=== PATIENT | male | born 1945 | race Caucasian/White ===

== ENCOUNTER 2020-02-28 18:41 | Emergency (ER) | payer OTHER, SELFPAY ==
--- NOTE | 2020-02-28 | CTR_ITS ---
PROCEDURE INFORMATION: Exam: CT Abdomen And Pelvis With Contrast Exam date and time: 02/28/2020 11:09 PM Age: 74 years old Clinical indication: Abdominal pain; Generalized; Additional info: Abd pain, low BP TECHNIQUE: Imaging protocol: Computed tomography of the abdomen and pelvis with intravenous contrast. Radiation optimization: All CT scans at this facility use at least one of these dose optimization techniques: automated exposure control; mA and/or kV adjustment per patient size (includes targeted exams where dose is matched to clinical indication); or iterative reconstruction. Contrast material: VISI; Contrast volume: 95 ml; Contrast route: INTRAVENOUS (IV); COMPARISON: CT abdomen pelvis wo con [id number] 05/02/2018 6:02 PM RADIATION DOSE METRICS: Total DLP (mGy-cm): 2139.89 FINDINGS: Lungs: Punctate right lower lobe calcified granuloma. Liver: Fatty infiltration of the liver. Gallbladder and bile ducts: No calcified stones. No pericholecystic inflammatory changes. No ductal dilation. Pancreas: Normal. No ductal dilation. Spleen: Calcified splenic granulomas. 2 cm splenic cyst. Bilateral simple renal cysts measuring up to 16 mm-no follow-up recommended. Adrenals: Normal. No mass. Kidneys and ureters: See Spleen finding. 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 Appendix: Normal appendix. Intraperitoneal space: No free air. No significant fluid collection. Vasculature: No abdominal aortic aneurysm. Lymph nodes: No enlarged lymph nodes. Bladder: Unremarkable as visualized. Reproductive: Enlarged prostate gland. Bones/joints: Unremarkable. No acute fracture. Soft tissues: Unremarkable. CT/CT abdomen pelvis w con* [id number] IMPRESSION: 1. No grass mass is seen at the site of the known stricture at the GE junction. 2. Fatty infiltration of the liver. COMMENTS: Consistent with the [employer]'s Incidental Findings Committee white paper (J Am Rm Radiol 2018): Any incidental renal lesion less than 1.0 cm or classified as too small to characterize, or any incidental cystic renal lesion characterized as simple-appearing, is likely benign. No follow-up imaging is recommended for these lesions per consensus recommendations based on imaging criteria. Radiation Dose CTDIVOL = (mGy): DLP = 2139.89 (mGy-cm)
[2020-02-28 19:45] VITALS: BP 104/67; PULSE 84; RESP 18; TEMP 36.8; O2SAT 95; BMI 35.5
--- NOTE | 2020-02-28 19:51 | PC.NURSE ---
History of stretching esophagus x 5 times in the past. Last one May 2019
[2020-02-28 20:50] LABS: Basophils # 0.1 10^3/uL (0.0-0.1); Basophils % 0.4 %; Eosinophils # 0.1 10^3/uL (0.0-0.8); Eosinophils % 0.9 %; Hematocrit 46.1 % (42.0-52.0); Hemoglobin 14.9 g/dL (11.7-16.6); Lymphocytes # 3.7 10^3/uL (0.8-4.8); Lymphocytes % 26.1 %; Mean Corpuscular HGB Conc 32.3 g/dL (30.0-36.0); Mean Corpuscular Hemoglobin 32.9 pg (28.0-34.0); Mean Corpuscular Volume 101.8 fL (80-94); Mean Platelet Volume 10.3 fL (7.4-10.4); Monocytes # 1.1 10^3/uL (0.2-0.9); Neutrophils # 8.8 10^3/uL (1.8-7.7); Neutrophils % 62.9 %; Nucleated Red Blood Cells % 0 %; Platelet Count 321 10^3/cmm (130-400); Red Blood Count 4.53 10^6/uL (4.1-5.3); Red Cell Distribution Width 15.5 % (12.1-15.1)
[2020-02-28 21:08] LABS: Lactate (Lactic Acid level) 1.9 mmol/L (0.5-2.2)
[2020-02-28 21:09] LABS: Alanine Aminotransferase 29 U/L (0-41); Albumin Level 4.4 g/dL (3.5-5.2); Alkaline Phosphatase 73 IU/L (40-130); Anion Gap 17.3 (5-19); Aspartate Amino Transferase 25 U/L (0-40); Blood Urea Nitrogen 22 mg/dL (8-23); Calcium 10.1 mg/dL (8.5-10.5); Carbon Dioxide 27 mmol/L (22-29); Chloride 94 mmol/L (98-107); Globulin 3.4 g/dL (1.3-4.6); Glucose 91 mg/dL (65-115); Lipase 19 U/L (13-60); Osmolality Calculated 274 mOsm/kg (285-295); Potassium 4.3 mmol/L (3.5-5.1); Sodium 134 mmol/L (136-145); Total Bilirubin 0.5 mg/dL (0.15-1.2); Total Protein 7.8 g/dL (6.6-8.7)
[2020-02-28 21:29] VITALS: BP 105/67; PULSE 75; RESP 20; O2SAT 94
--- NOTE | 2020-02-28 22:02 | ECG_ITS ---
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 Measurements Intervals [place] Rate: 75 P: 83 NM: 180 QRS: 28 QRSD: 89 T: 51 QT: 381 QTc: 426 Interpretive Statements SINUS RHYTHM Compared to ECG 05/02/2018 18:40:38 No significant changes Electronically Signed On 02-29-2020 13:51:04 CDT by Sanchez Jasso M.D. [email or web address]
--- NOTE | 2020-02-28 22:09 | XRR_ITS ---
PROCEDURE INFORMATION: Exam: XR Abdomen, 1 View Exam date and time: 02/28/2020 10:46 PM Age: 74 years old Clinical indication: Pain; Chest pressure; Patient HX: Stricture in esoph. Causing vomitting; Additional info: Cp TECHNIQUE: Imaging protocol: XR of the abdomen. Views: Frontal supine view of the abdomen. 1 View. COMPARISON: CR Chest 2 views* [id number] 05/02/2018 6:30 PM FINDINGS: Three images were taken over 4 minutes. Gastrointestinal tract: Administered oral contrast demonstrates a stricture in the vicinity of the GE junction. Some of the contrast passes through the stricture and is some of it remains within the distended esophagus. Bones/joints: No acute abnormality. XR/XR chest 2V* [id number] IMPRESSION: Administered oral contrast demonstrates a stricture in the vicinity of the GE junction. Some of the contrast passes through the stricture and is some of it remains within the distended esophagus.
[2020-02-28 22:23] VITALS: BP 108/56; PULSE 88; RESP 18; O2SAT 97
[2020-02-28] MEDS: sodium chloride 0.9% 1,000 ML 999 ML IV (22:25)
[2020-02-28 22:41] LABS: Troponin(5th) Baseline 44 ng/L (0-15)
[2020-02-28] MEDS: diatrizoate meglumine 30 mL Sol PO (22:44)
--- NOTE | 2020-02-28 23:06 | PC.NURSE ---
EKG done at 2228 and shown to ER doctor
[2020-02-28] MEDS: iodixanol 320 mg/mL 100mL Btl IV (23:12)
[2020-02-28 23:27] VITALS: BP 137/81; PULSE 81; RESP 18; O2SAT 95
[2020-02-29 00:10] VITALS: BP 123/61; PULSE 77; RESP 17; O2SAT 94
--- NOTE | 2020-02-29 00:58 | W.ED.ABDPA2 ---
HPI - Abdominal Pain General: Chief Complaint: Abdominal Pain Stated Complaint: throat/chest problems Time Seen by Provider: 02/28/20 21:36 History of Present Illness: HPI narrative: 74-year-old male with a history of 4-5 distal esophageal dilatations in the past. He presents after eating something this evening, and then getting some chest discomfort in the lower chest. At home, he became diaphoretic and pale and complained of chest discomfort. This worried his family. He had another episode in our waiting room. He seems to be tolerating saliva at least part of the time, but some things are coming back up as well. MD elicited complaint: abdominal pain Onset (ago): hour(s) Pain Consistency: constant Location: Chest and Epigastric Severity: moderate Quality: cramping and stabbing Radiation: back Migration to: no migration Relieving factors: nothing Associated Symptoms: Reports bloating, nausea and vomiting; Denies coffee ground emesis, diarrhea, fever(s), hematuria and hematemesis Review of Systems Const: Denies: fever(s) Eyes: Denies: change in vision or blurry vision ENMT: Denies: swelling of lips/tongue, change in hearing, post nasal drip or sinus pain Card: Reports: chest pain and palpitations; Denies: irregular heart rhythm or orthopnea Resp: Reports: dyspnea; Denies: productive cough, non-productive cough or wheezing GI: Reports: nausea, vomiting and bloating; Denies: hematemesis, coffee ground emesis or diarrhea : Denies: difficulty urinating or hematuria Musc: Reports: back pain; Denies: neck pain, joint redness or joint warmth Skin/Breast: Denies: rash, pruritus or erythema Neuro: Denies: headache(s), dizziness or vertigo Psych: Denies: anxiety Physical Exam Const: GENERAL APPEARANCE: well developed ORIENTATION/CONSCIOUSNESS: Yes oriented to person, Yes oriented to place and Yes oriented to time HENMT: COMMON NORMALS: normocephalic, external ears normal and Normal external nose present HEAD & SCALP: normocephalic; no scalp tenderness FACE & SINUS: normal facial exam NOSE: Normal external nose present and No nasal discharge present EXTERNAL EAR: Yes external ears normal MOUTH: tongue normal Eye: COMMON NORMALS: Equal, round and reactive pupils present, EOMs intact bilaterally and conjunctivae normal EYELID: eyelids normal CONJUNCTIVA: Yes conjunctivae normal PUPIL: Yes Equal, round and reactive pupils present Neck/C-Spine: GENERAL: No tracheal deviation Chest: COMMONS NORMALS: normal inspection of the chest CHEST: No tenderness Resp: COMMON NORMALS: clear to auscultation bilaterally EFFORT & INSPECTION: No tachypneic, No respiratory distress, No retractions, No uses accessory muscles and No tracheal deviation AUSCULTATION: clear to auscultation bilaterally, no rhonchi, no wheezes and lung sounds not diminished Cardio: COMMON NORMALS: regular rate and regular rhythm RATE: regular rate RHYTHM: regular rhythm HEART SOUNDS: no murmurs PERIPHERAL PULSES: radial pulses present GI: INSPECTION: Yes abdominal distension AUSCULTATION: No Hyperactive bowel sounds present and No Hypoactive bowel sounds present PALPATION: Yes Guarding due to palpation present (GI) and No Rigid due to palpation PERCUSSION: no dullness to percussion and no tympanic to percussion Neuro: SENSORIUM/ORIENTATION: Yes oriented to person, Yes oriented to place and Yes oriented to time Psych: COMMON NORMALS: mental status grossly normal Skin: COMMON NORMALS: no rashes or lesions noted GENERAL SKIN EXAM: no rashes or lesions noted Course Vital Signs: Vital signs: Vital Signs Temperature 98.3 F 02/28/20 19:45 Pulse Rate 77 02/29/20 00:10 Respiratory Rate 17 02/29/20 00:10 Blood Pressure 123/61 02/29/20 00:10 Pulse Oximetry 94 02/29/20 00:10 MDM - Abdominal Pain MDM Narrative: Medical decision making narrative: 74-year-old male presents with epigastric/chest pain, and inability to tolerate oral intake. He has a history of known stricture it has been dilated several times. Modified swallow study at the bedside reveals a significant stricture of the GE junction. He has had several episodes of diaphoresis, shortness of breath, and hypotension, likely related to vagal reaction. I spoke with our surgeon here, who does not perform esophageal dilatation procedures. I also spoke with gastroenterology at [facility]. Dr. Sierra has agreed to see the patient there. I spoke with my counterpart, Dr. Aranda in the ER, he accepts the patient for transfer. Lab Data: Labs: Lab Results 02/28/20 02/28/20 02/28/20 Range/Units 20:40 20:40 20:40 WBC 14.0 H (4.0-10.0) 10^3/ uL RBC 4.53 (4.1-5.3) 10^6/u L Hgb 14.9 (11.7-16.6) g/dL Hct 46.1 (42.0-52.0) % MCV 101.8 H (80-94) fL MCH 32.9 (28.0-34.0) pg MCHC 32.3 (30.0-36.0) g/dL RDW 15.5 H (12.1-15.1) % Plt Count 321 (130-400) 10^3/c mm MPV 10.3 (7.4-10.4) fL Neut % (Auto) 62.9 % Lymph % (Auto) 26.1 % [place] % (Auto) 8.0 % Eos % (Auto) 0.9 % Baso % (Auto) 0.4 % Neut # (Auto) 8.8 H (1.8-7.7) 10^3/u L Lymph # (Auto) 3.7 (0.8-4.8) 10^3/u L [place] # (Auto) 1.1 H (0.2-0.9) 10^3/u L Eos # (Auto) 0.1 (0.0-0.8) 10^3/u L Baso # (Auto) 0.1 (0.0-0.1) 10^3/u L Nucleated RBC % (a uto) 0 % Nucleated RBCs # 0.0 /100WBC Sodium 134 L (136-145) mmol/L Potassium 4.3 (3.5-5.1) mmol/L Chloride 94 L (98-107) mmol/L Carbon Dioxide 27 (22-29) mmol/L Anion Gap 17.3 (5-19) BUN 22 (8-23) mg/dL Creatinine 1.3 H (0.7-1.2) mg/dL Glucose 91 (65-115) mg/dL Calculated Osmolal ity 274 L (285-295) mOsm/k g Lactate 1.9 (0.5-2.2) mmol/L Calcium 10.1 (8.5-10.5) mg/dL Total Bilirubin 0.5 (0.15-1.2) mg/dL AST 25 (0-40) U/L ALT 29 (0-41) U/L Alkaline Phosphata se 73 (40-130) IU/L Troponin T Baselin e (0-15) ng/L Troponin T 120 Min [place] (0-15) ng/L Delta Troponin T (0-10) ABS# Total Protein 7.8 (6.6-8.7) g/dL Albumin 4.4 (3.5-5.2) g/dL Globulin 3.4 (1.3-4.6) g/dL Lipase 19 (13-60) U/L 02/28/20 02/28/20 Range/Units 20:40 22:55 WBC (4.0-10.0) 10^3/ uL RBC (4.1-5.3) 10^6/u L Hgb (11.7-16.6) g/dL Hct (42.0-52.0) % MCV (80-94) fL MCH (28.0-34.0) pg MCHC (30.0-36.0) g/dL RDW (12.1-15.1) % Plt Count (130-400) 10^3/c mm MPV (7.4-10.4) fL Neut % (Auto) % Lymph % (Auto) % [place] % (Auto) % Eos % (Auto) % Baso % (Auto) % Neut # (Auto) (1.8-7.7) 10^3/u L Lymph # (Auto) (0.8-4.8) 10^3/u L [place] # (Auto) (0.2-0.9) 10^3/u L Eos # (Auto) (0.0-0.8) 10^3/u L Baso # (Auto) (0.0-0.1) 10^3/u L Nucleated RBC % (a uto) % Nucleated RBCs # /100WBC Sodium (136-145) mmol/L Potassium (3.5-5.1) mmol/L Chloride (98-107) mmol/L Carbon Dioxide (22-29) mmol/L Anion Gap (5-19) BUN (8-23) mg/dL Creatinine (0.7-1.2) mg/dL Glucose (65-115) mg/dL Calculated Osmolal ity (285-295) mOsm/k g Lactate (0.5-2.2) mmol/L Calcium (8.5-10.5) mg/dL Total Bilirubin (0.15-1.2) mg/dL AST (0-40) U/L ALT (0-41) U/L Alkaline Phosphata se (40-130) IU/L Troponin T Baselin e 44 H (0-15) ng/L Troponin T 120 Min [place] 39.00 H (0-15) ng/L Delta Troponin T -5.00 L (0-10) ABS# Total Protein (6.6-8.7) g/dL Albumin (3.5-5.2) g/dL Globulin (1.3-4.6) g/dL Lipase (13-60) U/L Discharge Plan Discharge Patient Disposition: Xfer Other Clinical Impression: GERD with stricture Condition: Stable Referrals: Geovany Caputo [Primary Care Provider] - Coding Level of Care Code ED Video Journalist for [facility] Exam Comprehensive
[2020-02-29 01:26] VITALS: BP 107/63; PULSE 79; RESP 17; O2SAT 97
[2020-02-29 01:57] VITALS: BP 107/63; PULSE 87; RESP 17; O2SAT 98
[2020-02-29 05:17] LABS: C Reactive Protein 7.6 mg/L (0.0-4.9)
== END 2020-02-29 01:59 | disposition other institution (70) ==
PROVIDERS: Emergency Provider Emergency Medicine; Family Provider Internal Medicine; PCP Internal Medicine
DX: K21.9 Gastro-esophageal reflux disease without esophagitis (principal)
CPT/HCPCS: 12345; 36415; 71046; 74177; 80053; 83605; 83690; 84484; 85025; 86140; 93005; 96360; 99283; 99284; J7030; Q9963; Q9967

== ENCOUNTER → 2020-05-17 12:52 | Outpatient (BNVA) | payer OTHER, SELFPAY | PROVIDERS: Family Provider Internal Medicine; PCP Internal Medicine | DX: Z20.828 Contact with and (suspected) exposure to other viral communicable diseases (principal) | CPT/HCPCS: 87635 ==

== ENCOUNTER → 2020-06-17 10:21 | Outpatient (BNVA) | payer OTHER, SELFPAY | PROVIDERS: Family Provider Internal Medicine; PCP Internal Medicine; Referring Provider Family Medicine; Visit Provider Specialist | DX: M17.0 Bilateral primary osteoarthritis of knee (principal) | CPT/HCPCS: 73560; 73565 ==

== ENCOUNTER 2020-11-09 10:52 | Emergency (ER) | payer OTHER, SELFPAY ==
[2020-11-09 11:04] VITALS: BP 169/95; PULSE 80; RESP 16; TEMP 36.2; O2SAT 95; BMI 37.1
--- NOTE | 2020-11-09 11:17 | ED_ITS ---
HPI - Skin/Abscess/Foreign Bdy General: Chief complaint: Skin/Abscess/Foreign Body Stated complaint: FINGER INFECTION Time Seen by Provider: 11/09/20 11:06 History of Present Illness: HPI narrative: The patient is a 75-year-old male with past medical history diabetes who comes to the ER complaining of a left pinky infection. He has a paronychia to the nail. 3 weeks ago he smashed it but it seems like overnight the pain swelling and redness occurred. He is worried about it because he is a diabetic MD complaint: abscess/boil Onset (ago): day(s) (1) Location: L hand Severity: mild Quality: sharp Pain Consistency: constant Relieving factors: none Exacerbating factors: palpation Context: none Associated symptoms: Reports no associated symptoms Review of Systems General: Reports: 10 or more systems reviewed and unremarkable except in HPI and below Const: Denies: fatigue Eyes: Denies: change in vision, blurry vision or eye redness ENMT: Denies: throat pain, swelling of lips/tongue, ear or mastoid pain or nasal congestion Card: Denies: chest pain, palpitations, irregular heart rhythm, edema, dyspnea on exertion or orthopnea Resp: Denies: dyspnea, productive cough or non-productive cough GI: Denies: abdominal pain, diarrhea or GI cramping : Denies: flank pain, urinary frequency or urinary urgency Musc: Denies: neck pain, back pain, extremity pain, joint pain, joint redness, limited range of motion or muscle weakness Skin/Breast: Denies: rash, pruritus, erythema, skin pain or skin tenderness Neuro: Denies: headache(s), numbness in extremities, weakness in extremities, sensory changes, difficulty walking, dizziness, confusion or Slurred speech present Psych: Denies: anxiety or depression Endo: Denies: polyuria All/Imm: Denies: urticaria, throat swelling or tongue swelling PFSH ED PFSH: Social History Smoking and tobacco status: never smoked Alcohol intake: never Physical Exam Const: COMMON NORMALS: no acute distress, average body habitus, patient oriented x3, no limitations, healthy appearing, alert and well nourished GENERAL APPEARANCE: cooperative, comfortable, well kempt and well developed ORIENTATION/CONSCIOUSNESS: Yes awake, Yes oriented to person, Yes oriented to place and Yes oriented to time HENMT: COMMON NORMALS: normocephalic, external ears normal and Normal external nose present HEAD & SCALP: normal to inspection and normocephalic NOSE: Normal external nose present EXTERNAL EAR: Yes external ears normal MOUTH: Normal oral and palatal mucosa present THROAT: posterior oropharynx normal Eye: COMMON NORMALS: Equal, round and reactive pupils present and EOMs intact bilaterally GENERAL EYE: appearance normal, both eyes and all related structures PUPIL: Yes Equal, round and reactive pupils present Neck/C-Spine: COMMON NORMALS: full ROM, no lymphadenopathy, no meningeal signs and no JVD GENERAL: Yes normal visual inspection Lymph: LYMPHATIC: no lymphadenopathy noted Chest: COMMONS NORMALS: normal inspection of the chest and normal palpation of entire chest wall Resp: COMMON NORMALS: normal respiratory effort, No retractions, No use of accessory muscles, clear to auscultation bilaterally and percussion normal EFFORT & INSPECTION: Yes able to speak in complete sentences AUSCULTATION: clear to auscultation bilaterally PERCUSSION: percussion normal Cardio: COMMON NORMALS: no JVD, regular rate, regular rhythm, S1 normal heart sound present, S2 normal heart sound present and Peripheral pulses 2+ throughout RATE: regular rate RHYTHM: regular rhythm HEART SOUNDS: S1 normal heart sound present and S2 normal heart sound present PERIPHERAL PULSES: Peripheral pulses 2+ throughout GI: COMMON NORMALS: Normal to inspection, nondistended, normoactive bowel sounds present, Soft to palpation, non-tender and no masses INSPECTION: Yes normal to inspection PALPATION: Yes Soft to palpation : COMMON NORMALS: Yes no CVA tenderness BLADDER/KIDNEY EXAM: Yes no CVA tenderness Back/Pelvis: COMMON NORMALS: no CVA tenderness, thoracic and lumbar spine normal to inspection, no thoracic nor lumbar tenderness and thoraco-lumbar ROM normal Extremity: COMMON NORMALS: normal to inspection, full ROM, capillary refill normal, no joint enlargement and no pedal edema GENERAL: Yes normal exam except as noted Neuro: COMMON NORMALS: patient oriented x3, CN's II-XII intact bilaterally, moves all extremities, no focal motor deficits, no sensory deficits noted and gait normal SENSORIUM/ORIENTATION: Yes alert, Yes oriented to person, Yes oriented to place and Yes oriented to time MENINGEAL SIGNS: Yes no meningeal signs Psych: COMMON NORMALS: mental status grossly normal, Normal thought process present, cooperative, normal affect and speech normal APPEARANCE: Yes well kempt ATTITUDE: Yes calm SPEECH: Yes normal speech THOUGHT PROCESS: Normal thought process present Skin: COMMON NORMALS: no rashes or lesions noted NARRATIVE SKIN EXAM: Left fifth digit paronychia with mild surrounding cellulitis. GENERAL SKIN EXAM: no rashes or lesions noted Procedures Abscess I/D Site: hand (Left fifth digit paronychia) Side (if applicable): left Technique: incised with #11 blade Amount of fluid expressed (mL): 0.25 Irrigation: No Packing used?: none Complications: other (none) Course Vital Signs: Vital signs: Vital Signs Temperature 97.1 F L 11/09/20 11:04 Pulse Rate 80 11/09/20 11:04 Respiratory Rate 16 11/09/20 11:04 Blood Pressure 169/95 11/09/20 11:04 Pulse Oximetry 95 11/09/20 11:04 MDM - Skin/Abscess/Foreign Bdy MDM Narrative: Medical decision making narrative: Used Betadine and drained a small paronychia on left fifth digit. Patient tolerated well. Given Keflex and stable for discharge. Recommended follow-up with primary care physician in 3 to 5 days to monitor improvement of his condition. ER with worsening symptoms Discharge Plan Discharge Patient Disposition: Home Clinical Impression: Paronychia Condition: Stable Prescriptions: New cephalexin 500 mg capsule 500 mg PO BID 10 Days Qty: 20 RF: 0 No Action alogliptin 25 mg tablet 25 mg PO DAILY RF: 0 lisinopril-hydrochlorothiazide 20-25 mg tablet 1 tab PO DAILY RF: 0 atorvastatin 80 mg tablet 80 mg PO DAILY RF: 0 omeprazole 20 mg capsule,delayed release(DR/EC) 20 mg PO BID RF: 0 metformin 1,000 mg tablet 1,000 mg PO BID RF: 0 gabapentin 800 mg tablet 800 mg PO BID RF: 0 allopurinol 300 mg tablet 150 mg PO DAILY RF: 0 glipizide 10 mg tablet 10 mg PO BID RF: 0 Discharge Orders: Discharge ED (Routine); Ordered 11/09/20 Ordered By: Huang Saavedra Referrals: Geovany Caputo [Primary Care Provider] - Discharge Diet: Advance as tolerated Discharge Activity: Resume usual activity Patient Instructions: Opioid Safety Activity Restrictions/Additional Instructions: You have a small infection of your left finger called a paronychia. It has been drained. Please take the antibiotics as directed for 10 days and follow-up with your primary care physician in 3 to 5 days to monitor improvement of the wound. Return to the ER at anytime with worsening symptoms. Coding Level of Care Code ED [facility] Exam Comprehensive
[2020-11-09] MEDS: cephALEXin 500 mg Capsule PO (11:27)
== END 2020-11-09 11:35 | disposition home or self-care (01) ==
PROVIDERS: Emergency Provider Family Medicine; PCP Internal Medicine
DX: L03.012 Cellulitis of left finger (principal)
CPT/HCPCS: 10060; 99283

== ENCOUNTER 2021-11-30 12:52 | Emergency (ER) | payer OTHER, SELFPAY ==
[2021-11-30 12:58] VITALS: BP 128/72; PULSE 85; RESP 16; TEMP 36.6; O2SAT 94; BMI 34.7
[2021-11-30 14:17] VITALS: BP 116/76; PULSE 77; RESP 21; O2SAT 93
--- NOTE | 2021-11-30 14:19 | W.ED.GENADLT ---
HPI - General Adult General: Chief complaint: General Medical Stated complaint: throat pain / loss of appetite Time Seen by Provider: 11/30/21 14:19 Source: patient Mode of arrival: ambulatory Limitations: no limitations History of Present Illness: 76-year-old male presents emergency room stating he has difficulty swallowing food. Things feels like things get stuck in his throat. He began 3 to 4 days ago and is persisted he is able to swallow saliva he is able to swallow his pills this morning and has been able to swallow liquids but any solids feel like they get hung up he has required EGD with dilation in the past from Dr. Johnson. He has not had difficulty with airway or managing saliva at this time. Onset (ago): day(s) (4) Location: abdomen Radiation: non-radiation Severity: mild Quality: aching Pain Consistency: intermittent Relieving factors: none Exacerbating factors: eating Associated symptoms: Deny chest pain, confusion, cough, diaphoresis, decreased appetite, dyspnea, fevers/chills, headache(s), malaise, nausea, rash, palpitations, seizures, short of breath, syncope, vomiting or weakness Treatments prior to arrival: none Review of Systems Const: Denies: malaise or diaphoresis ENMT: Denies: throat pain, ear or mastoid pain, nasal discharge or nasal congestion Card: Denies: chest pain, palpitations or syncope Resp: Denies: dyspnea GI: Denies: nausea or vomiting : Denies: flank pain, dysuria, urinary frequency or urinary urgency Skin/Breast: Denies: rash Neuro: Denies: headache(s) or confusion PFS ED PFSH: Social History Smoking and tobacco status: never smoked Alcohol intake: never Physical Exam Const: COMMON NORMALS: no acute distress GENERAL APPEARANCE: cooperative and comfortable ORIENTATION/CONSCIOUSNESS: Yes awake, Yes oriented to person, Yes oriented to place and Yes oriented to time HENMT: COMMON NORMALS: normocephalic, atraumatic and hearing grossly normal bilaterally HEAD & SCALP: normocephalic and atraumatic Neck/C-Spine: COMMON NORMALS: no JVD Resp: COMMON NORMALS: normal respiratory effort, No retractions, No use of accessory muscles and clear to auscultation bilaterally AUSCULTATION: clear to auscultation bilaterally Cardio: COMMON NORMALS: no JVD, regular rate, regular rhythm and No murmurs present (Cardio) RATE: regular rate RHYTHM: regular rhythm GI: COMMON NORMALS: Soft to palpation and No hepatosplenomegaly present AUSCULTATION: Yes normoactive bowel sounds PALPATION: Yes Soft to palpation, No Tenderness to palpation present (GI), No Guarding due to palpation present (GI) and Yes No hepatosplenomegaly present Extremity: COMMON NORMALS: normal to inspection, capillary refill normal, no clubbing, cyanosis or edema, no calf tenderness and no pedal edema Neuro: SENSORIUM/ORIENTATION: Yes oriented to person, Yes oriented to place and Yes oriented to time Skin: COMMON NORMALS: no rashes or lesions noted GENERAL SKIN EXAM: no rashes or lesions noted Course Vital Signs: Vital signs: Vital Signs Temperature 97.8 F 11/30/21 12:58 Pulse Rate 81 11/30/21 14:50 Respiratory Rate 22 H 11/30/21 14:50 Blood Pressure 147/90 11/30/21 14:50 Pulse Oximetry 93 11/30/21 14:[address] [facility] - General Adult Medical Decision Making Patient certainly does sound like he has an esophageal stricture but he is also not obstructed at this time is able to swallow liquids and pills. Discussed Dr. Johnson since that he is who has seen him previously and patient request Dr. Alex Siddiquiu patient in outpatient clinic and schedule EGD with possible dilation at a later date. In the meantime asked patient to go with a liquid diet only he should not take his glipizide or Metformin until after the procedure is completed return if he is unable to swallow liquids Medical Records I reviewed the patient's medical records. Lab Data I reviewed the patient's lab results. Discharge Plan Discharge Patient Disposition: Home Clinical Impression: Esophageal stricture Condition: Stable Prescriptions: No Action alogliptin 25 mg tablet 25 mg PO DAILY 0RF lisinopril-hydrochlorothiazide 20-25 mg tablet 1 tab PO DAILY 0RF atorvastatin 80 mg tablet 40 mg PO DAILY 0RF omeprazole 20 mg capsule,delayed release(DR/EC) 20 mg PO BID 0RF metformin 1,000 mg tablet 1,000 mg PO BID 0RF gabapentin 800 mg tablet 800 mg PO BID 0RF allopurinol 300 mg tablet 300 mg PO DAILY 0RF glipizide 10 mg tablet 10 mg PO BID 0RF Aspir-81 81 mg Tablet,Delayed Release (Dr/Ec) 81 mg PO DAILY 0RF Vitamin D3 1 cap PO QAM 0RF Discharge Orders: Discharge ED (Routine); Ordered 11/30/21 Ordered By: Jefe Warner Referrals: Domenico Johnson MD [Physician] - (esophogeal stricture worsenign) Discharge Diet: As Directed Discharge Activity: Resume usual activity Patient Instructions: Opioid Safety Coding Level of Care Code ED [facility]
[2021-11-30 14:50] VITALS: BP 147/90; PULSE 81; RESP 22; O2SAT 93
== END 2021-11-30 14:51 | disposition home or self-care (01) ==
PROVIDERS: Emergency Provider Family Medicine; PCP Internal Medicine
DX: K22.2 Esophageal obstruction (principal)
CPT/HCPCS: 99281

== ENCOUNTER 2021-12-02 09:27 | Day surgery (SDC) | payer OTHER, SELFPAY ==
[2021-12-01 08:18] VITALS: BMI 34.4
--- NOTE | 2021-12-02 10:00 | P.HP_ITS ---
Same Day Surgery H&P Indication for Procedure/HPI DATE OF PROCEDURE: December 02, 2021 CHIEF COMPLAINT/INDICATIONFOR SURGICAL PROCEDURE: Achalasia/EGD with dilation, Botox PREOP DIAGNOSIS: Achalasia PLANNED PROCEDURE: Operation Date: 12/02/21 11:00 Proposed Procedures p EGD Dilation W/ Balloon R13.10(Not Applicable) - Domenico Johnson MD s EGD With Botox Injection(Not Applicable) - Domenico Johnson MD Medications/Allergies* Home Medications Medication Instructions Recorded Confirmed Type allopurinol 300 mg tablet 300 mg PO DAILY 05/17/20 12/02/21 History alogliptin 25 mg tablet 25 mg PO DAILY 05/17/20 12/02/21 History atorvastatin 80 mg tablet 40 mg PO DAILY 05/17/20 12/02/21 History gabapentin 800 mg tablet 800 mg PO BID 05/17/20 12/02/21 History glipizide 10 mg tablet 10 mg PO BID 05/17/20 12/02/21 History lisinopril 20 1 tab PO DAILY 05/17/20 12/02/21 History mg-hydrochlorothiazide 25 mg tablet metformin 1,000 mg tablet 1,000 mg PO BID 05/17/20 12/02/21 History omeprazole 20 mg capsule,delayed 20 mg PO BID 05/17/20 12/02/21 History release Vitamin D3 1 cap PO QAM 11/30/21 12/02/21 History aspirin 81 mg tablet,delayed 81 mg PO DAILY 11/30/21 12/02/21 History release Allergies/Adverse Reactions Allergy/AdvReac Type Severity Reaction Status Date / Time erythromycin base Allergy Intermediate ALGY-Rash Verified 12/02/21 09:58 azithromycin Allergy Unknown Verified 12/02/21 09:58 bacitracin Allergy NAUSEA Verified 12/02/21 09:58 [From Triple Antibiotic] neomycin Allergy NAUSEA Verified 12/02/21 09:58 [From Triple Antibiotic] polymyxin B Allergy NAUSEA Verified 12/02/21 09:58 [From Triple Antibiotic] Pertinent History/Comorbid Conditions* Social History Smoking and tobacco status: never smoked Alcohol intake: never Pertinent Exam Findings alert, oriented x 3 and regular rate & rhythm Recommendations Surgery/Procedure today Coding Level of Care Code Acute Checkering Machine Adjuster for g Jacoby
[2021-12-02 10:01] VITALS: BP 126/72; PULSE 77; RESP 18; TEMP 36.1; O2SAT 95
[2021-12-02] MEDS: sodium chloride 0.9% 1,000 ML 30 ML IV (10:08)
--- NOTE | 2021-12-02 12:39 | ANES.PREANE2 ---
Documented by User: Blessing Ibrahim CRNA 12/02/21 12:42 Pre-Anesthetic Assessment Height/Weight: Height 1.83 m Weight 115.212 kg Temp Pulse Resp BP Pulse Ox 97.0 F L 77 18 126/72 95 12/02/21 10:01 12/02/21 10:01 12/02/21 10:01 12/02/21 10:01 12/02/21 10:01 Preop Diagnosis: Achalasia Operation Date: 12/02/21 11:00 Proposed Procedures p EGD Dilation W/ Balloon R13.10(Not Applicable) - Domenico Johnson MD s EGD With Botox Injection(Not Applicable) - Domenico Johnson MD Familial anesthetic complications: none Was Beta Manuel taken within 24 hours: N/A Was Clonidine taken within 24 hours: N/A Last intake: Intake Last Liquid Date 12/01/21 Last Liquid Time 19:30 Last Solid Date 11/30/21 Last Solid Time 20:00 Social No alcohol and No tobacco Exam alert, oriented x 3, clear to auscultation bilaterally and regular rate & rhythm Airway Submandibular: within normal limits Cervical ROM: within normal limits Mallampati: Class II Dentition: false History/ROS No significant history except as noted CV/HEM Hypertension GI Gastroesophageal Reflux Disease Metabolic Diabetes Mellitus, Hyperlipidemia and Morbid Obesity Musc/skel Lower Back Pain Anesthetic Plan ASA status: 3 Anesthesia: Anesthesia Evaluation and General Risk of > 500 ml blood loss (7ml/kg in children): No Medications/Allergies Home Medications Medication Instructions Recorded Confirmed Last Taken Type allopurinol 300 mg tablet 300 mg PO DAILY 05/17/20 12/02/21 12/01/21 History alogliptin 25 mg tablet 25 mg PO DAILY 05/17/20 12/02/21 12/01/21 History atorvastatin 80 mg tablet 40 mg PO DAILY 05/17/20 12/02/21 12/01/21 History gabapentin 800 mg tablet 800 mg PO BID 05/17/20 12/02/21 12/01/21 History glipizide 10 mg tablet 10 mg PO BID 05/17/20 12/02/21 12/01/21 History lisinopril 20 1 tab PO DAILY 05/17/20 12/02/21 12/01/21 History mg-hydrochlorothiazide 25 mg tablet metformin 1,000 mg tablet 1,000 mg PO BID 05/17/20 12/02/21 12/01/21 History omeprazole 20 mg capsule,delayed 20 mg PO BID 05/17/20 12/02/21 12/02/21 History release Vitamin D3 1 cap PO QAM 11/30/21 12/02/21 12/02/21 History aspirin 81 mg tablet,delayed 81 mg PO DAILY 11/30/21 12/02/21 12/01/21 History release Allergies Allergy/AdvReac Type Severity Reaction Status Date / Time erythromycin base Allergy Intermediate ALGY-Rash Verified 12/02/21 09:58 azithromycin Allergy Unknown Verified 12/02/21 09:58 bacitracin Allergy NAUSEA Verified 12/02/21 09:58 [From Triple Antibiotic] neomycin Allergy NAUSEA Verified 12/02/21 09:58 [From Triple Antibiotic] polymyxin B Allergy NAUSEA Verified 12/02/21 09:58 [From Triple Antibiotic] Current Medications Generic Name Dose Route Start Last Admin Trade Name Freq PRN Reason Stop Dose Admin Sodium Chloride 1,000 mls @ 30 mls/hr 12/02/21 10:15 12/02/21 10:08 Sodium Chloride 0.9% IV 12/03/21 10:14 30 mls/hr .Q24H KISHAN Administration PFSH Anesthesia Surgical History (Updated 12/02/21 @ 13:26 by Domenico Johnson MD) H/O esophagogastroduodenoscopy (12/02/21) dilation and botox injection Social History Smoking and tobacco status: never smoked Alcohol intake: never Data Anesthesia Cardiac Studies: No Data to Display
[2021-12-02 13:33] VITALS: BP 101/71; PULSE 100; RESP 18; TEMP 36.3; O2SAT 93
[2021-12-02 13:43] VITALS: BP 86/61; PULSE 106; RESP 16; O2SAT 92
[2021-12-02 13:50] VITALS: BP 118/64; PULSE 102; RESP 18; O2SAT 92
--- NOTE | 2021-12-02 14:29 | ANE.PACU2 ---
Documented by User: Blessing Ibrahim CRNA 12/02/21 14:29 Inpatient post-anesthesia follow up: Airway intact: Yes Vital signs: Temperature 97.3 F Pulse Rate 102 Respiratory Rate 18 Blood Pressure 118/64 Pulse Oximetry 92 Oxygen Delivery Me thod Room Air Oxygen Flow Rate Fraction of Inspir ed Oxygen Hydration adequate: Yes Nausea and vomiting: No Pain level: 1 Mental status: Baseline
== END 2021-12-02 14:05 | disposition home or self-care (01) ==
PROVIDERS: PCP Internal Medicine; Visit Provider Surgery
PROC: 3E0G8TZ Introduction of Destructive Agent into Upper GI, Via Natural or Artificial Opening Endoscopic (ICD-10-PCS; CPT 43236; 2021-12-02 11:00)
DX: K22.0 Achalasia of cardia (principal); I10 Essential (primary) hypertension; K21.9 Gastro-esophageal reflux disease without esophagitis; E11.9 Type 2 diabetes mellitus without complications; Z79.84 Long term (current) use of oral hypoglycemic drugs; E78.5 Hyperlipidemia, unspecified; E66.01 Morbid (severe) obesity due to excess calories; Z68.34 Body mass index [BMI] 34.0-34.9, adult; Z79.82 Long term (current) use of aspirin
CPT/HCPCS: 43233; 43236; J0330; J0585; J2405; J2704; J3010; J3490; J7030

== ENCOUNTER → 2021-12-27 09:44 | Outpatient (BNVA) | payer OTHER, SELFPAY | PROVIDERS: PCP Family Medicine; Visit Provider Surgery | DX: E78.5 Hyperlipidemia, unspecified (principal); R13.10 Dysphagia, unspecified | CPT/HCPCS: 99214 ==

== ENCOUNTER → 2022-01-18 15:18 | Outpatient (BNVA) | payer OTHER, SELFPAY | PROVIDERS: PCP Family Medicine; Visit Provider Surgery | DX: R13.10 Dysphagia, unspecified (principal) | CPT/HCPCS: 99212 ==

== ENCOUNTER 2022-03-23 07:34 | Outpatient (CLI) | payer OTHER, SELFPAY ==
--- NOTE | 2022-03-23 13:45 | PFTS_ITS ---
Date of Study:03/23/22 Date of Dictation: 03/25/2022 MECHANICS: Postbronchodilator forced vital capacity (FVC) is reduced. Postbronchodilator forced expiratory volume in one second (FEV1) is moderately reduced. FEV1/FVC is reduced. There is significant bronchodilator response. FLOW VOLUME LOOP: Sloping of expiratory limb suggestive of airflow obstruction LUNG VOLUMES: Total lung capacity (TLC) is reduced. Residual volume (RV) is mildly reduced. DIFFUSING CAPACITY FOR CARBON MONOXIDE: Mildly reduced INTERPRETATION: The postbronchodilator is spirometry suggestive of moderate airflow obstruction. There is significant bronchodilator response. Lung volumes suggest mild restriction. There is mild gas transfer defect. Overall pulmonary function tests show mixed pattern with spirometry showing moderate airflow obstruction and lung volumes showing mild restriction. Clinical correlation recommended. [facility]
== END 2022-03-23 07:35 | disposition home or self-care (01) ==
PROVIDERS: PCP Family Medicine; Visit Provider Family Medicine
DX: J43.9 Emphysema, unspecified (principal)
CPT/HCPCS: 94060; 94726; 94729; J7614

== ENCOUNTER → 2022-09-01 10:09 | Outpatient (BNVA) | payer OTHER, SELFPAY | PROVIDERS: PCP Family Medicine; Visit Provider Internal Medicine Cardiovascular Disease | DX: R06.02 Shortness of breath (principal); R06.00 Dyspnea, unspecified; I10 Essential (primary) hypertension; K21.9 Gastro-esophageal reflux disease without esophagitis; Z87.891 Personal history of nicotine dependence | CPT/HCPCS: 93005; 99204; Q3014 ==

== ENCOUNTER 2022-09-07 14:49 | Outpatient (CLI) | payer OTHER, SELFPAY ==
--- NOTE | 2022-09-07 15:00 | USCV_ITS ---
Dorothy Weaver Age: 76 Gender: M : 1945 Exam Date: 09/07/2022 15:12 Ordering Phys: Yesica Telles MD [email or web address]) Technologist: PRINCESS [place] [facility] [place]: SHORTNESS OF BREATH BP: 128 / 72 HR: 81 Rhythm: Sinus Technical Quality: Adequate MEASUREMENTS (Male / Female) Normal Values 2D ECHO LVOT Diameter 2.0 cm LV Ejection Fraction MOD 2C 66.0 % LV Ejection Fraction 2C AL 65.9 % LA Diameter 3.0 cm LA Width 3.2 cm LA Height 4.0 cm RA Width 2.9 cm RA Height 4.7 cm Aorta at Sinotubular Diameter 2.9 cm M-MODE Aortic Annulus Diameter 3.6 cm LA Ao Ratio MM 0.8 MV E Point Septal Separation 0.8 cm DOPPLER AV Peak Velocity 121.0 cm/s LVOT Peak Velocity 121.0 cm/s AV Area Cont Eq vti 3.4 cm squared AV Area Cont Eq pk 3.1 cm squared MV Peak Velocity 75.0 cm/s MV Area PHT 3.2 cm squared Mitral E to A Ratio 0.7 MV E' Velocity 29.0 cm/s Mitral E to MV E' Ratio 4.4 Mitral E to LV E' Lateral Ratio 4.3 Mitral E to LV E' Septal Ratio 4.5 TR Peak Velocity 172.6 cm/s TR Peak Gradient 11.9 mmHg TR Mean Velocity 133.4 cm/s TR Mean Gradient 7.5 mmHg TR Velocity Time Integral 33.4 cm TV Peak E Velocity 39.0 cm/s Right Atrial Pressure 8.0 mmHg Pulmonary Artery Systolic Pressu 19.9 mmHg PV Peak Velocity 99.0 cm/s RV Acceleration Time 0.1 s RV Ejection Time 0.2 s RV AcT/ET 0.3 FINDINGS Left Ventricle Normal left ventricular size, systolic function and wall thickness, with no regional wall motion abnormalities. Left ventricular ejection fraction is estimated at 65 %. Normal diastolic function. Right Ventricle Normal right ventricular size and systolic function. RVSP could not be calculated due to incomplete tricuspid regurgitation velocity profile. Right Atrium Normal right atrial size. Left Atrium Normal left atrial size. Mitral Valve Structurally normal mitral valve. No mitral valve stenosis. No mitral valve regurgitation. Aortic Valve Aortic valve not well visualized. No aortic valve stenosis. No aortic valve regurgitation. Tricuspid Valve Structurally normal tricuspid valve. No tricuspid valve stenosis. Trace to mild tricuspid valve regurgitation. Pulmonic Valve Pulmonic valve not well visualized. No pulmonary valve stenosis. No significant pulmonary valve regurgitation. Pericardium No pericardial effusion. Aorta Normal size aortic root and proximal ascending aorta. IVC Inferior vena cava not visualized. CONCLUSIONS 1. Normal left ventricular size, systolic function and wall thickness, with no regional wall motion abnormalities. Left ventricular ejection fraction is estimated at 65 %. Normal diastolic function. 2. Trace to mild tricuspid valve regurgitation. 3. No change when compared to study dated 06/03/2019. Yesica Telles MD (Electronically Signed) Final Date: 11 September 2022 19:12 S
[2022-09-07] MEDS: perflutren protein-a microsphr 0.22 mg/mL SDV 3 mL IV (15:41)
== END 2022-09-07 14:50 | disposition home or self-care (01) ==
LOC: RAD 14:53
PROVIDERS: PCP Family Medicine; Visit Provider Internal Medicine Cardiovascular Disease
DX: R06.02 Shortness of breath (principal); R07.9 Chest pain, unspecified; I07.1 Rheumatic tricuspid insufficiency
CPT/HCPCS: C8929; Q9956

== ENCOUNTER 2022-09-30 09:47 | Emergency (ER) | payer OTHER, SELFPAY ==
--- NOTE | 2022-09-30 09:55 | XR_ITS ---
WS: [id number] Portable AP upright chest, 09/30/2022 Clinical Data: dyspnea/cough Comparison: Two-view chest, 02/23/2022 Findings: No nodules, masses or effusions are seen. The heart is enlarged. The pulmonary vascularity is not increased. No pneumonia or pneumothorax is seen. The aortic arch and descending thoracic aorta show mild calcification and tortuosity. XR/XR chest 1V portable [id number] Impression: Atherosclerosis and cardiomegaly.
--- NOTE | 2022-09-30 09:55 | ECG_ITS ---
[facility] Test Date: 2022-09-30 Pat Name: Dorothy Weaver Department: Room: Gender: Male Film Inspector: : 1945 Requested By: Jefe Parker Order Number: [id number] Patricia MD: Ramiro Burt M.D. Measurements Intervals [place] Rate: 91 P: 55 GA: 184 QRS: 16 QRSD: 81 T: 46 QT: 329 QTc: 406 Interpretive Statements SINUS RHYTHM Compared to ECG 02/28/2020 22:29:15 No significant changes Electronically Signed On 09-30-2022 23:26:56 BLEACHER PULP by Ramiro Burt M.D. [id number]
[2022-09-30 09:57] VITALS: BP 150/90; PULSE 97; RESP 18; TEMP 36.6; O2SAT 90; BMI 34.5
--- NOTE | 2022-09-30 09:58 | W.ED.SOB ---
HPI - SOB/Dyspnea General: Chief Complaint: Shortness of Breath/Dyspnea Stated Complaint: SOB Time Seen by Provider: 09/30/22 09:54 Source: patient Mode of arrival: ambulatory History of Present Illness: HPI Narrative: 76-year-old male with a history of distal esophageal stricture. In November 2021 he had a dilation with an injection with Botox he proximally had some chronic dilation of his esophagus this was cleaned out. His previous note was reviewed. Patient states he is having more discomfort when he eats at various times it feels like things will not go through. There was initially some confusion he was not sure that he was taking pantoprazole but ultimately was able to confirm he has been taking it daily. He initially registered complaining of shortness of breath on the stated in chief complaint however when talking to him he denies any shortness of breath any fever cough or chills he states that all of chest discomfort exclusively when he eats and he feels like things do not go down when he tries to swallow. No fever sweats chills vomiting or diarrhea. Timing: intermittent Severity: moderate Exacerbating factors: other (Eating) Relieving factors: nothing Associated symptoms: Reports abdominal pain and chest pain; Deny chest congestion, cough, diaphoresis, dizziness, extremity pain, fever(s), hemoptysis, lightheadedness, myalgias, nausea, orthopnea, palpitations, paresthesias, polydipsia, polyuria, rash, sense of impending doom, syncope or vomiting Treatment prior to arrival: none Review of Systems Const: Denies: fever(s) or diaphoresis ENMT: Denies: throat pain Card: Reports: chest pain; Denies: palpitations, irregular heart rhythm, edema, swelling of feet/ankles, lightheadedness, syncope or orthopnea Resp: Reports: non-productive cough; Denies: dyspnea, productive cough, wheezing, hemoptysis or chest congestion GI: Reports: abdominal pain; Denies: nausea or vomiting : Denies: flank pain, dysuria, urinary frequency or urinary urgency Musc: Denies: extremity pain Skin/Breast: Denies: rash or pruritus Neuro: Denies: dizziness Endo: Denies: polyuria or polydipsia PFS ED PFSH: Medical History Naqvi's esophagus Diabetes mellitus GERD (gastroesophageal reflux disease) Hypertension Surgical History H/O esophagogastroduodenoscopy (12/02/21) dilation and botox injection History of colonoscopy year ago History of open reduction and internal fixation (ORIF) procedure right ankle Family History Sister Myocardial infarction Father Stroke Other Hypertension Social History Smoking and tobacco status: former smoker Alcohol intake: never Physical Exam Const: COMMON NORMALS: no acute distress GENERAL APPEARANCE: cooperative and comfortable ORIENTATION/CONSCIOUSNESS: Yes awake, Yes oriented to person, Yes oriented to place and Yes oriented to time HENMT: COMMON NORMALS: normocephalic, atraumatic and hearing grossly normal bilaterally HEAD & SCALP: normocephalic and atraumatic Resp: COMMON NORMALS: normal respiratory effort, No retractions, No use of accessory muscles and clear to auscultation bilaterally AUSCULTATION: clear to auscultation bilaterally Cardio: COMMON NORMALS: regular rate, regular rhythm and No murmurs present (Cardio) RATE: regular rate RHYTHM: regular rhythm GI: COMMON NORMALS: Soft to palpation and No hepatosplenomegaly present AUSCULTATION: Yes normoactive bowel sounds PALPATION: Yes Soft to palpation, No Tenderness to palpation present (GI), No Guarding due to palpation present (GI) and Yes No hepatosplenomegaly present Extremity: COMMON NORMALS: normal to inspection, capillary refill normal, no clubbing, cyanosis or edema, no calf tenderness and no pedal edema Neuro: SENSORIUM/ORIENTATION: Yes oriented to person, Yes oriented to place and Yes oriented to time Skin: COMMON NORMALS: no rashes or lesions noted GENERAL SKIN EXAM: no rashes or lesions noted Course Vital Signs: Vital signs: Vital Signs Temperature 97.9 F 09/30/22 09:57 Pulse Rate 84 09/30/22 11:27 Respiratory Rate 18 09/30/22 11:27 Blood Pressure 136/88 09/30/22 11:27 Pulse Oximetry 90 09/30/22 09:57 Oxygen Delivery Me thod 09/30/22 11:27 MDM - SOB/Dyspnea Medical Decision Making Patient was able to drink a 16 ounce glass of water without any difficulty and swallow it without regurgitation or coughing or choking or gagging. It would be a little unusual for him to have developed a significant enough stricture already to require another procedure in less than a year especially after he had the Botox injected. An esophageal dilation aspect noted at the previous procedure may be more of his cause a of his symptoms. For now we will have him go to a full liquid diet and increase his Protonix to twice daily follow-up with general surgery next week cost and risk analysis manager will make arrangements. Medical Records I reviewed the patient's medical records. Lab Data I reviewed the patient's lab results. Labs/Radiology: Radiology Impressions Chest X-Ray 09/30/22 09:55 Impression: Atherosclerosis and cardiomegaly. Discharge Plan Discharge Patient Disposition: Home Clinical Impression: GERD (gastroesophageal reflux disease), Esophageal stricture Condition: Stable Prescriptions: Changed Protonix 40 mg tablet,delayed release (DR/EC) 40 mg PO BID Qty: 60 0RF No Action alogliptin 25 mg tablet 25 mg PO DAILY lisinopril-hydrochlorothiazide 20-25 mg tablet 1 tab PO DAILY atorvastatin 80 mg tablet 40 mg PO DAILY metformin 1,000 mg tablet 1,000 mg PO BID allopurinol 300 mg tablet 300 mg PO DAILY glipizide 10 mg tablet 10 mg PO BID gabapentin 800 mg tablet 800 mg PO DAILY Adult 50 Plus Probiotic 4 billion cell capsule 4,000 mmu cells PO DAILY Rx Instructions: administer with a meal cholecalciferol (vitamin D3) 50 mcg (2,000 unit) capsule 50 mcg PO DAILY vitamin B complex [B Complex-Vitamin B12] Tablet 1 tab PO DAILY albuterol sulfate [ProAir HFA] 90 mcg/actuation HFA aerosol inhaler 2 puff inhalation Q6H PRN fluticasone propion-salmeterol [Wixela Inhub] 100-50 mcg/dose blister with device 1 inh inhalation BID zinc acetate 50 mg (zinc) capsule 50 mg PO DAILY aspirin 81 mg Tablet,Delayed Release (Dr/Ec) 81 mg PO DAILY Discharge Orders: Discharge ED (Routine); Ordered 09/30/22 Ordered By: Jefe Warner Discharge Diet: Full LIquid Discharge Activity: Increase activity as tolerated Patient Instructions: Opioid Safety, Pain Management Activity Restrictions/Additional Instructions: You are seen today for complaints of difficulty swallowing (dysphagia). You are still able to pass liquids through to the stomach without vomiting so at this point an emergent EGD and dilation is not indicated. Case management make arrangements for follow-up with general surgery to evaluate and schedule EGD if felt appropriate Coding Level of Care Code ED Food Counter Worker for Mendez Dozier
--- NOTE | 2022-09-30 10:39 | DCPLANNER ---
Addendum entered by Mya Jaime 10/05/22 13:52: manager quality systems received the following message from the general surgery clinic regarding follow up appointment: Spoke with patient's daughter and she stated that patient is ONLY [facility], explained we cannot see [facility] patient's.. She stated she has been in contact with [facility] all day and they will continue that route Addendum entered by Mya Jaime 10/05/22 13:51: shelter case manager called to confirm that [facility] received patients information, shelter case manager was told that clinic did receive patients information, it will be reviewed, and clinic will call patient with appointment information. Addendum entered by Mya Jaime 10/05/22 13:49: late entry manager quality systems spoke with patient while he was in the ER, and explained that Dr. Collazo was not in network with [facility], and that patient would need to be seen at either [facility] or [facility]. Patient and his stated that he would like to be referred to [facility]. manager quality systems faxed patients information to [facility]. Original Note: manager quality systems had message to schedule a follow up appointment for patient with general surgery. manager quality systems sent patients information to the front office staff at general surgery. Patients information will be printed and reviewed. Clinic will call patient with appointment information.
[2022-09-30 11:27] VITALS: BP 136/88; PULSE 84; RESP 18
== END 2022-09-30 11:30 | disposition home or self-care (01) ==
PROVIDERS: Emergency Provider Family Medicine
DX: K21.9 Gastro-esophageal reflux disease without esophagitis (principal); K22.2 Esophageal obstruction; Z79.82 Long term (current) use of aspirin; Z79.84 Long term (current) use of oral hypoglycemic drugs; E11.9 Type 2 diabetes mellitus without complications; I10 Essential (primary) hypertension; Z87.891 Personal history of nicotine dependence
CPT/HCPCS: 71045; 93005; 99285

== ENCOUNTER 2022-10-03 07:53 | Outpatient (CLI) | payer OTHER, SELFPAY ==
[2022-10-03 08:00] VITALS: BMI 36.3
--- NOTE | 2022-10-03 08:01 | ECG_ITS ---
[facility] Test Date: 2022-10-03 Pat Name: Dorothy Weaver Department: Room: Gender: Male Sales Order Coordinator: : 1945 Requested By: Yesica Telles Order Number: [id number] Gomez MD: Yesica Telles M.D. Interpretive Statements NAME OF STUDY: LEXISCAN SESTAMIBI STRESS TEST INDICATION: Chest Pain; Shortness of Breath PROCEDURE: At the baseline, the blood pressure was 112/60 mm Hg with a heart rate of 78 bpm. The electrocardiogram showed sinus rhythm, normal axis. Poor anterior R wave progression. ??? The Lexiscan was infused over a period of 20 seconds. A total of 0.4 milligrams of Lexiscan was infused. The stress phase was continued for a total of 5 minutes. Heart rate at the end of the stress phase was 87 bpm with a blood pressure of 105/57 mm Hg. The EKG at the peak infusion revealed no significant ST-T wave changes. The study was terminated due to protocol completion. ??? Sestamibi was injected 20 seconds after the Lexiscan infusion. ??? Blood pressure at the end of the recovery phase was 103/59 mm Hg with a heart rate of 84 beats per minute. ??? CONCLUSION: 1. No significant EKG changes with the LexiScan infusion. 2. No LexiScan induced chest pain or cardiac arrhythmia. 3. Normal blood pressure and heart rate response. 4. Sestamibi/sestamibi perfusion scan pending; see separate report. Electronically Signed On 10-11-2022 6:22:57 PHYS THERAPIST by Yesica Telles M.D. [id number]
--- NOTE | 2022-10-03 08:02 | NMCV_ITS ---
NM steffi perf SPECT r/s* [id number] Dorothy Weaver Age: 76 Gender: M : 1945 Exam Date: 10/03/2022 08:02 Ordering Phys: Yesica Telles MD ([email or web address]) Technologist: LASHONDA Hauser Exam Location: [facility] Indications: EXERTIONAL SHORTNESS OF BREATH STRESS TEST Please see separate stress test report in [facility] for full findings IMAGE PROTOCOL Rest/Stress 1 Lexiscan Day Radiopharmaceutical Dose (mCi) Administration Site Administered by Rest: Tc-99m 10.7 IV LASHONDA Craft Sestamibi Stress:Tc-99m 32.8 IV LASHONDA Craft Sestamibi Rest: 03-Oct-2022 60 Discovery 630 Stress: 03-Oct-2022 30 Discovery 630 0.4mg Lexiscan. Images obtained in supine and prone position. SPECT RESULTS Technical Quality: Excellent Raw Data Analysis: Normal Image Corrections: No attenuation or motion correction applied Summed Stress Score: 1 Summed Rest Score: 0 Summed Difference Score: 1 PERFUSION FINDINGS SPECT images demonstrate homogeneous tracer distribution throughout the myocardium. FUNCTIONAL RESULTS (calculated via Gated SPECT) Stress Image LV EF (%): 67 Stress EDV (mL):75 TID: 0.96 Stress ESV (mL):25 FUNCTIONAL FINDINGS: The left ventricle is normal in size. Transient Ischemia Dilatation of 0.96. The left ventricular ejection fraction is normal with a value of 67%. There is normal left ventricular wall thickening. Normal end diastolic and end systolic volumes. IMPRESSIONS 1. Myocardial perfusion imaging is normal. 2. Overall left ventricular systolic function is normal without regional wall motion abnormalities, LVEF=67%. 3. EKG portion of the study will be reported separately. 4. No coronary ischemia based on this study. Yesica Telles MD (Electronically Signed) Final Date: 05 October 2022 14:31 S
[2022-10-03] MEDS: regadenoson 0.4 Mg/5 ml Syringe IVP (09:48)
[2022-10-03 10:08] VITALS: BP 103/59; PULSE 90
== END 2022-10-03 07:54 | disposition home or self-care (01) ==
PROVIDERS: PCP Student in an Organized Health Care Education/Training Program; Visit Provider Internal Medicine Cardiovascular Disease
DX: R06.02 Shortness of breath (principal)
CPT/HCPCS: 36415; 78452; 93017; 96374; A9500; J2785

== ENCOUNTER → 2022-10-25 10:23 | Outpatient (BNVA) | payer OTHER, SELFPAY | PROVIDERS: PCP Student in an Organized Health Care Education/Training Program; Visit Provider Nurse Practitioner Family | DX: R06.09 Other forms of dyspnea (principal); I10 Essential (primary) hypertension; Z87.891 Personal history of nicotine dependence; Z79.82 Long term (current) use of aspirin | CPT/HCPCS: 71046; 80048; 83880; 99214 ==

== ENCOUNTER → 2022-12-22 10:20 | Outpatient (BNVA) | payer OTHER, SELFPAY | PROVIDERS: PCP Student in an Organized Health Care Education/Training Program; Visit Provider Internal Medicine Pulmonary Disease | DX: R06.09 Other forms of dyspnea; J98.8 Other specified respiratory disorders; J98.4 Other disorders of lung; M25.641 Stiffness of right hand, not elsewhere classified; M25.642 Stiffness of left hand, not elsewhere classified; R06.02 Shortness of breath; R91.1 Solitary pulmonary nodule; K21.9 Gastro-esophageal reflux disease without esophagitis; K22.0 Achalasia of cardia; Z91.09 Other allergy status, other than to drugs and biological substances; R91.8 Other nonspecific abnormal finding of lung field; D72.10 Eosinophilia, unspecified; Z87.891 Personal history of nicotine dependence | CPT/HCPCS: 36415; 82785; 85025; 85651; 86003; 86038; 86140; 86200; 86235; 86431; 99204 ==

== ENCOUNTER 2023-01-10 12:19 | Outpatient (CLI) | payer OTHER, SELFPAY ==
--- NOTE | 2023-01-10 13:00 | CT_ITS ---
WS: [id number] CT CHEST CT-HIGH RESOLUTION, NONCONTRAST. HISTORY: Restrictive lung disease. Short of breath. Technique: High-resolution chest CT is performed in inspiration, expiration, supine and prone positio rj. All CT scans at [facility] use at least one of these dose optimization techniques: automated exposure control; mA and/or kV adjustment per patient size (includes targeted exams where dose is mat ched to clinical indication); or iterative reconstruction. DLP: 2032.05 mGy.cm COMPARISON: Chest CT 01/05/2018 and radiograph 10/25/2022 Findings: Lungs are well-aerated. No honeycombing or significant cystic lung disease. No traction bro nchiectasis. There are a few bronchi which appear mildly prominent suggesting early bronchiectasis. M ost significant in the lingula and RIGHT middle lobe. 6 mm stable nodule LEFT lower lobe. There is a very subtle area of groundglass attenuation in the lingula. During expiration there is very minimal change in the lung volume. No mosaic attenuation or air norma ing is identified. Very mild atherosclerotic calcifications within the aorta. Pulmonary artery size equal to the aorta a t 3.4 cm. No adenopathy. Heart is normal size. There is massive dilatation of the esophagus with food products and an air-fluid level to the level o f the clavicular heads. This has been previously described on a prior CT of 01/05/2018. Progressive di latation of the esophagus now measures up to 7.5 cm in diameter. Patient is at risk for aspiration. T he dilated esophagus is actually displacing and splaying the charbel and LEFT atrium. Splenic granulomata. No adrenal mass. No destructive bone lesions. CT/CT chest wo con [id number] Impression: 1. No honeycombing or cystic lung disease. No pneumonia. 2. Minimal early changes of bronchiectasis involving the lingula and RIGHT mid dle lobe. 3. Massive dilatation of the esophagus with food products and air fluid levels . Esophageal dilatation previously described in 2018 with progression. This dil atation is causing mass effect with splaying of charbel and proximal bronchi. Th is may be causing restrictive lung disease. There is also distortion of the LEF T atrium. Differential includes achalasia, distal esophageal stricture and scle roderma. Cannot exclude neoplasm but due to long-term stability this is probabl y benign process. Patient is at risk for aspiration pneumonia. 4. Long-term stability LEFT lower lobe pulmonary nodule.
== END 2023-01-10 12:20 | disposition home or self-care (01) ==
LOC: RAD 12:22
PROVIDERS: PCP Student in an Organized Health Care Education/Training Program; Visit Provider Internal Medicine Pulmonary Disease
DX: J98.4 Other disorders of lung (principal); J98.8 Other specified respiratory disorders; R06.09 Other forms of dyspnea; J47.9 Bronchiectasis, uncomplicated; K22.89 Other specified disease of esophagus; R91.1 Solitary pulmonary nodule
CPT/HCPCS: 36415; 71250; 82785; 85025; 85651; 86003; 86038; 86140; 86200; 86235; 86431; 99204

== ENCOUNTER → 2023-02-21 12:27 | Outpatient (BNVA) | payer OTHER, SELFPAY | PROVIDERS: PCP Family Medicine; Visit Provider Internal Medicine Pulmonary Disease | DX: J44.9 Chronic obstructive pulmonary disease, unspecified (principal); J98.8 Other specified respiratory disorders; J98.4 Other disorders of lung; M25.641 Stiffness of right hand, not elsewhere classified; M25.642 Stiffness of left hand, not elsewhere classified; K21.9 Gastro-esophageal reflux disease without esophagitis; K22.0 Achalasia of cardia; I73.00 Raynaud's syndrome without gangrene; J82.83 Eosinophilic asthma; R91.8 Other nonspecific abnormal finding of lung field; Z87.891 Personal history of nicotine dependence; Z99.81 Dependence on supplemental oxygen | CPT/HCPCS: 99214 ==

== ENCOUNTER → 2023-07-10 09:09 | Outpatient (BNVA) | payer OTHER, SELFPAY | PROVIDERS: PCP Family Medicine; Referring Provider Family Medicine; Visit Provider Surgery | DX: R13.10 Dysphagia, unspecified (principal) | CPT/HCPCS: 99204; 99214 ==

== ENCOUNTER 2024-08-01 12:13 | Emergency (ER) | payer OTHER, SELFPAY ==
[2024-08-01 12:18] VITALS: BP 150/91; PULSE 91; TEMP 36.4; O2SAT 95; BMI 33.5
--- NOTE | 2024-08-01 12:53 | ECG_ITS ---
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 Measurements Intervals [place] Rate: 82 P: 85 MT: 190 QRS: 23 QRSD: 86 T: 23 QT: 341 QTc: 401 Interpretive Statements SINUS RHYTHM WITH OCCASIONAL SUPRAVENTRICULAR PREMATURE COMPLEXES Compared to ECG 09/30/2022 10:07:49 No significant changes Electronically Signed On 08-01-2024 14:39:45 [employer] by Ramiro Burt M.D. [id number]
[2024-08-01 13:07] LABS: Basophils # 0.1 10^3/uL (0.0-0.1); Basophils % 0.9 %; Eosinophils # 0.3 10^3/uL (0.0-0.8); Eosinophils % 1.9 %; Hematocrit 47.9 % (37-53); Lymphocytes # 5.5 10^3/uL (0.8-4.8); Mean Corpuscular HGB Conc 31.7 g/dL (30-55); Mean Corpuscular Hemoglobin 30.2 pg (27-33); Mean Platelet Volume 10.1 fL (7.4-10.4); Monocytes % 7.4 %; Neutrophils # 6.89 10^3/uL (1.8-7.7); Neutrophils % 48.7 %; Nucleated Red Blood Cells % 0 %; Platelet Count 348 10^3/cmm (157-399); Red Blood Count 5.04 10^6/uL (3.85-5.65); Red Cell Distribution Width 16.2 % (12.1-15.1); White Blood Count 14.12 10^3/uL (3.29-11.43)
[2024-08-01 13:26] LABS: Alanine Aminotransferase 14 U/L (0-41); Albumin Level 3.9 g/dL (3.5-5.2); Alkaline Phosphatase 86 U/L (40-130); Anion Gap 14.9 (5-19); Aspartate Amino Transferase 13 U/L (0-40); Blood Urea Nitrogen 23 mg/dL (8-23); Calcium 10.5 mg/dL (8.5-10.5); Carbon Dioxide 28 mmol/L (22-29); Chloride 97 mmol/L (98-107); Creatinine Clr Calc Pharmacy 71.5308; Globulin 4.4 g/dL (1.3-4.6); Glucose 168 mg/dL (65-115); Osmolality Calculated 290 mOsm/kg (285-295); Potassium 3.9 mmol/L (3.5-5.1); Sodium 136 mmol/L (136-145); Total Bilirubin 0.4 mg/dL (0.15-1.2); Total Protein 8.3 g/dL (6.6-8.7)
[2024-08-01 13:34] LABS: Slide Review Slide Review Perform
--- NOTE | 2024-08-01 15:28 | W.ED.GENADLT ---
HPI - General Adult General: Chief complaint: Airway/Esophagus Foreign Body Stated complaint: stopped up Time Seen by Provider: 08/01/24 14:37 History of Present Illness: 78-year-old male presents to the emergency room with complaints of difficulty swallowing. Patient has had problems with esophageal stricture in the past has had EGDs with dilation he said for about the last 5 days patient has had difficulty swallowing solid foods they feel like they get stuck. He can swallow liquids. He has been able to swallow saliva. He is concerned he may have food caught in his esophagus. When he ate solids he feels like he gets stuck for a time it is chest but will eventually pass. He ate a very large meal 5 days ago and actually did vomit some of that back. Since then it has been continually difficult to eat any solids but he has been able to get the liquids down. no hematemesis or coffee-ground emesis. Associated symptoms: Reports nausea; Deny chest pain, dyspnea or rash Related Data Home Medications Medication Instructions Recorded Confirmed allopurinol 300 mg tablet 300 mg PO DAILY 05/17/20 08/01/24 alogliptin 25 mg tablet 25 mg PO DAILY 05/17/20 08/01/24 glipizide 10 mg tablet 10 mg PO BID 05/17/20 08/01/24 lisinopril 20 1 tab PO DAILY 05/17/20 08/01/24 mg-hydrochlorothiazide 25 mg tablet metformin 1,000 mg tablet 1,000 mg PO BID 05/17/20 08/01/24 aspirin 81 mg tablet,delayed 81 mg PO DAILY 11/30/21 08/01/24 release fluticasone 100 mcg-salmeterol 50 1 inh inhalation BID 09/01/22 08/01/24 mcg/dose blistr powdr for inhalation (Wixela Inhub) gabapentin 800 mg tablet 800 mg PO DAILY 09/01/22 08/01/24 lactobacillus combination no.9 4 4,000 mmu cells PO DAILY 09/01/22 08/01/24 billion cell capsule (Adult 50 Plus Probiotic) albuterol sulfate 90 mcg/actuation 2 puff inhalation Q6H PRN 08/01/24 08/01/24 aerosol inhaler (Ventolin HFA) Shortness Of Breath Or Wheezing atorvastatin 40 mg tablet 20 mg PO QPM 08/01/24 08/01/24 cyclobenzaprine 5 mg tablet 5 mg PO TID 08/01/24 08/01/24 diclofenac sodium 1 % topical gel 4 g topical QID 08/01/24 08/01/24 metoprolol tartrate 25 mg tablet 12.5 mg PO BID 08/01/24 08/01/24 vitamin B complex 1 tab PO DAILY 08/01/24 08/01/24 Previous Rx's Medication Instructions Recorded pantoprazole 40 mg tablet,delayed 40 mg PO BID #60 tabs 09/30/22 release (Protonix) oxygen #1 ea 10/25/22 Allergies Allergy/AdvReac Type Severity Reaction Status Date / Time erythromycin base Allergy Intermediate ALGY-Rash Verified 08/01/24 12: azithromycin Allergy Unknown Verified 08/01/24 12:25 bacitracin Allergy NAUSEA Verified 08/01/24 12:25 [From Triple Antibiotic] neomycin Allergy NAUSEA Verified 08/01/24 12:25 [From Triple Antibiotic] polymyxin B Allergy NAUSEA Verified 08/01/24 12:25 [From Triple Antibiotic] Review of Systems Const: Denies: fever(s) or chills Card: Denies: chest pain Resp: Denies: dyspnea GI: Reports: nausea and dysphagia; Denies: abdominal pain, hematemesis, coffee ground emesis, hematochezia or melena : Denies: dysuria, urinary frequency or urinary urgency Musc: Denies: neck pain or back pain Skin/Breast: Denies: rash PFSH ED PFSH: Medical History GERD (gastroesophageal reflux disease) Diabetes mellitus Hypertension Naqvi's esophagus Surgical History History of open reduction and internal fixation (ORIF) procedure right ankle History of colonoscopy year ago H/O esophagogastroduodenoscopy (12/02/21) dilation and botox injection Family History Sister Myocardial infarction Father Stroke Other Hypertension Social History Smoking and tobacco/nicotine status: former use of tobacco/nicotine Alcohol intake: never Substance/Drug Use: never Physical Exam Const: COMMON NORMALS: no acute distress GENERAL APPEARANCE: cooperative and comfortable ORIENTATION/CONSCIOUSNESS: Yes awake, Yes oriented to person, Yes oriented to place and Yes oriented to time HENMT: COMMON NORMALS: normocephalic, atraumatic and hearing grossly normal bilaterally HEAD & SCALP: normocephalic and atraumatic Resp: COMMON NORMALS: normal respiratory effort, No retractions, No use of accessory muscles and clear to auscultation bilaterally AUSCULTATION: clear to auscultation bilaterally Cardio: COMMON NORMALS: regular rate, regular rhythm and No murmurs present (Cardio) RATE: regular rate RHYTHM: regular rhythm GI: COMMON NORMALS: Soft to palpation and No hepatosplenomegaly present AUSCULTATION: Yes normoactive bowel sounds PALPATION: Yes Soft to palpation, No Tenderness to palpation present (GI), No Guarding due to palpation present (GI) and Yes No hepatosplenomegaly present Extremity: COMMON NORMALS: normal to inspection, capillary refill normal, no clubbing, cyanosis or edema, no calf tenderness and no pedal edema Neuro: SENSORIUM/ORIENTATION: Yes oriented to person, Yes oriented to place and Yes oriented to time Skin: COMMON NORMALS: no rashes or lesions noted GENERAL SKIN EXAM: no rashes or lesions noted Course Vital Signs: Vital signs: Vital Signs Temperature 97.5 F L 08/01/24 12:18 Pulse Rate 90 08/01/24 17:45 Blood Pressure 123/91 08/01/24 17:45 Pulse Oximetry 95 08/01/24 17:45 Oxygen Delivery Me thod Room Air 08/01/24 16:25 MDM - General Adult Medical Decision Making Patient given glucagon no real improvement. He is able to swallow liquids but says he has trouble with solids. Talk to Dr. Cuba and he recommended a Gastrografin swallow with a chest x-ray to see if the Gastrografin accumulates in the esophagus. Significant accumulation in the esophagus which is also obvious achalasia see radiographic evidence of a very largely dilated esophagus. Further evaluation was medical records show this is a known diagnosis he has had dilations before last one was a year and a half ago. Dr. Hall seen him and referred him to tertiary care which she has not been to yet. I discussed with Dr. Collazo he does not feel this is emergent at this time and recommends that the patient be referred back to tertiary care he likely may need significant surgical intervention or Botox injections for his achalasia which they have done successfully evidently in the past. Reviewed with the patient discharged home with recommendation for liquid diet only. Stressed to the patient he should take no solids by mouth Lab Data 08/01/24 12:56 12 12:56 Radiology Impressions Chest X-Ray 08/01/24 16:27 IMPRESSION: As above. Laboratory Results WBC 14.12 10^3/uL (3.29-11.43) H 08/01/24 12:56 RBC 5.04 10^6/uL (3.85-5.65) 08/01/24 12:56 Hgb 15.20 g/dL (11.27-16.99) 08/01/24 12:56 Hct 47.9 % (37-53) 08/01/24 12:56 MCV 95.0 fl (82-101) 08/01/24 12:56 MCH 30.2 pg (27-33) 08/01/24 12:56 MCHC 31.7 g/dL (30-55) 08/01/24 12:56 RDW 16.2 % (12.1-15.1) H 08/01/24 12:56 Plt Count 348 10^3/cmm (157-399) 08/01/24 12:56 MPV 10.1 fL (7.4-10.4) 08/01/24 12:56 Neut % (Auto) 48.7 % 08/01/24 12:56 Lymph % (Auto) 39.0 % 08/01/24 12:56 [place] % (Auto) 7.4 % 08/01/24 12:56 Eos % (Auto) 1.9 % 08/01/24 12:56 Baso % (Auto) 0.9 % 08/01/24 12:56 Neut # (Auto) 6.89 10^3/uL (1.8-7.7) 08/01/24 12:56 Lymph # (Auto) 5.5 10^3/uL (0.8-4.8) H 08/01/24 12:56 [place] # (Auto) 1.0 10^3/uL (0.2-0.9) H 08/01/24 12:56 Eos # (Auto) 0.3 10^3/uL (0.0-0.8) 08/01/24 12:56 Baso # (Auto) 0.1 10^3/uL (0.0-0.1) 08/01/24 12:56 Nucleated RBC % (auto) 0 % 08/01/24 12:56 Nucleated RBCs # 0.0 /100WBC 08/01/24 12:56 Sodium 136 mmol/L (136-145) 08/01/24 12:56 Potassium 3.9 mmol/L (3.5-5.1) 08/01/24 12:56 Chloride 97 mmol/L (98-107) L 08/01/24 12:56 Carbon Dioxide 28 mmol/L (22-29) 08/01/24 12:56 Anion Gap 14.9 (5-19) 08/01/24 12:56 BUN 23 mg/dL (8-23) 08/01/24 12:56 Creatinine 1.1 mg/dL (0.7-1.2) 08/01/24 12:56 GFR Calculation Not Reportable 08/01/24 12:56 Glucose 168 mg/dL (65-115) H 08/01/24 12:56 Calculated Osmolality 290 mOsm/kg (285-295) 08/01/24 12:56 Calcium 10.5 mg/dL (8.5-10.5) 08/01/24 12:56 Total Bilirubin 0.4 mg/dL (0.15-1.2) 08/01/24 12:56 AST 13 U/L (0-40) 08/01/24 12:56 ALT 14 U/L (0-41) 08/01/24 12:56 Alkaline Phosphatase 86 U/L (40-130) 08/01/24 12:56 Total Protein 8.3 g/dL (6.6-8.7) 08/01/24 12:56 Albumin 3.9 g/dL (3.5-5.2) 08/01/24 12:56 Globulin 4.4 g/dL (1.3-4.6) 08/01/24 12:56 All radiology interpretation(s) finalized by discharge Discharge Plan Discharge Patient Disposition: Home Clinical Impression: Achalasia of esophagus Condition: Stable Prescriptions: No Action alogliptin 25 mg tablet 25 mg PO DAILY lisinopril-hydrochlorothiazide 20-25 mg tablet 1 tab PO DAILY metformin 1,000 mg tablet 1,000 mg PO BID allopurinol 300 mg tablet 300 mg PO DAILY glipizide 10 mg tablet 10 mg PO BID gabapentin 800 mg tablet 800 mg PO DAILY Adult 50 Plus Probiotic 4 billion cell capsule 4,000 mmu cells PO DAILY Rx Instructions: administer with a meal fluticasone propion-salmeterol [Wixela Inhub] 100-50 mcg/dose blister with device 1 inh inhalation BID (DME) oxygen See Rx Instructions .Route .MEDSUPPLY Qty: 1 0RF Rx Instructions: 2-3L/NC to keep saturation of 90% or greater. aspirin 81 mg Tablet,Delayed Release (Dr/Ec) 81 mg PO DAILY pantoprazole [Protonix] 40 mg tablet,delayed release (DR/EC) 40 mg PO BID Qty: 60 0RF vitamin B complex Tablet 1 tab PO DAILY cyclobenzaprine 5 mg tablet 5 mg PO TID metoprolol tartrate 25 mg tablet 12.5 mg PO BID albuterol sulfate [Ventolin HFA] 90 mcg/actuation Hfa Aerosol Inhaler 2 puff INHALATION Q6H PRN (Reason: Shortness Of Breath Or Wheezing) atorvastatin 40 mg Tablet 20 mg PO QPM diclofenac sodium 1 % Gel 4 g TOPICAL QID Rx Instructions: apply to single knee, ankle, foot; for foot includes sole/toes/top of foot Discharge Orders: Discharge ED (Routine); Ordered 08/01/24 Ordered By: Jefe Warner Referrals: Nimco He MD [Primary Care Provider] - Discharge Diet: Full LIquid Discharge Activity: Increase activity as tolerated Patient Instructions: Opioid Safety, Pain Management Activity Restrictions/Additional Instructions: Thank you for choosing [facility] for your healthcare needs today. It is very important that you follow up as instructed or that you return to the Emergency Department should you have concerns or if your condition changes or worsens in any way. You are seen in the emergency room with complaints of difficulty swallowing. Reviewing chart this has been a longstanding issue and you have a history of achalasia. Dr. Hall had seen you previously and he recommends that you be seen at a tertiary care center. Reviewed the x-rays taken after the Gastrografin swallow and reviewed your history with Dr. Collazo who is on-call for surgery he does not recommend emergent EGD with dilation. Will discharge home recommend you stay on a full liquid diet you can use Sustacal or Ensure. You should not eat any solids. Contact Dr. Hall's office and they will help ensure you have follow-up at a tertiary care center for this problem. Coding Level of Care Code ED Cathode [employer] Processor for Mendez Dozier
[2024-08-01 16:25] VITALS: BP 127/80; PULSE 85; O2SAT 94
--- NOTE | 2024-08-01 16:27 | XRR_ITS ---
PROCEDURE INFORMATION: Exam: XR Chest Exam date and time: 08/01/2024 4:31 PM Age: 78 years old Clinical indication: Other: Foreign object; Additional info: X-ray with gastrografin swallow to evaluate esophageal obstr TECHNIQUE: Imaging protocol: Radiologic exam of the chest. Views: 1 view. COMPARISON: CT chest con [id number] 01/10/2023 1:14 PM FINDINGS: Lungs: Limitation of the lung bases due to body habitus, however there appears to be no lobar consolidation. Pleural spaces: Unremarkable. No pleural effusion. No pneumothorax. Heart/Mediastinum: Mild cardiomegaly. A patulous esophagus can be seen. Contrast can be seen up to the mid esophagus concerning for reflux or obstruction. Consider follow up with an esophagram study. Bones/joints: Unremarkable. XR/XR chest 1V portable [id number] IMPRESSION: As above.
[2024-08-01] MEDS: glucagon 1 mg/mL KIT 1 mL IM (16:50)
[2024-08-01 17:45] VITALS: BP 123/91; PULSE 90; O2SAT 95
== END 2024-08-01 17:46 | disposition home or self-care (01) ==
PROVIDERS: Emergency Provider Family Medicine; PCP Family Medicine
DX: K22.0 Achalasia of cardia (principal); Z79.82 Long term (current) use of aspirin; Z87.891 Personal history of nicotine dependence; E11.9 Type 2 diabetes mellitus without complications; I10 Essential (primary) hypertension
CPT/HCPCS: 36415; 71045; 80053; 85025; 93005; 96372; 99285; J1610

== ENCOUNTER 2024-12-26 07:40 | Outpatient (CLI) | payer OTHER, SELFPAY ==
--- NOTE | 2024-12-26 07:49 | CTR_ITS ---
PROCEDURE INFORMATION: Exam: CTA Chest With Contrast Exam date and time: 12/26/2024 8:15 AM Age: 79 years old Clinical indication: Condition or disease; Follow up thoracic aortic aneurysm, pelvic pain x 2 years. Elevated psa; Additional info: Thoracic aortic aneurysm, abdominal tenderness/elevated psa TECHNIQUE: Imaging protocol: Computed tomographic angiography of the chest with contrast. Exam focused on the arteries. 3D rendering (Not supervised by radiologist): MIP and/or 3D reconstructed images were created by the technologist. Radiation optimization: All CT scans at this facility use at least one of these dose optimization techniques: automated exposure control; mA and/or kV adjustment per patient size (includes targeted exams where dose is matched to clinical indication); or iterative reconstruction. Contrast material: OMNI 350; Contrast volume: 100 ml; Contrast route: INTRAVENOUS (IV); COMPARISON: CT chest wo con [id number] 01/10/2023 1:14 PM RADIATION DOSE METRICS: Total DLP (mGy-cm): 2355.88 FINDINGS: Pulmonary arteries: No pulmonary embolism. Aorta: Mild calcified atherosclerotic changes are seen in the thoracic aorta. Ectatic ascending thoracic aortic measuring 4.1 x 4.4 cm. This is stable. Descending thoracic aorta measures 3.4 x 3.1 cm. Trachea: Trachea is patent. Lungs: Stable left lower lobe 7 mm nodule. There is a new right lower lobe 1.2 x 0.8 cm nodule (6/104). Pleural spaces: Unremarkable. No pneumothorax. No pleural effusion. Heart: Unremarkable. No cardiomegaly. No pericardial effusion. Coronary arteries: Coronary calcifications are seen. Esophagus: The esophagus is distended diffusely with air-fluid level. Lymph nodes: No enlarged mediastinal lymph node. Bones/joints: Stable 5 mm sclerotic focus in the T5 vertebral body. Soft tissues: Unremarkable. Other findings: Isthmus measures 3 cm. PROCEDURE INFORMATION: Exam: CT Abdomen And Pelvis With Contrast Exam date and time: 12/26/2024 8:15 AM Age: 79 years old Clinical indication: Condition or disease; Follow up thoracic aortic aneurysm, pelvic pain x 2 years. Elevated psa; Additional info: Thoracic aortic aneurysm, abdominal tenderness/elevated psa TECHNIQUE: Imaging protocol: Computed tomography of the abdomen and pelvis with contrast. Radiation optimization: All CT scans at this facility use at least one of these dose optimization techniques: automated exposure control; mA and/or kV adjustment per patient size (includes targeted exams where dose is matched to clinical indication); or iterative reconstruction. Contrast material: OMNI 350; Contrast volume: 100 ml; Contrast route: INTRAVENOUS (IV); COMPARISON: CT abdomen pelvis w con* [id number] 02/28/2020 11:04 PM RADIATION DOSE METRICS: Total DLP (mGy-cm): 2355.88 FINDINGS: Liver: There is a new indeterminate right hepatic lesion measuring 2.6 x 2.2 cm. Gallbladder and biliary ducts: Normal. No calcified stones. No ductal dilation. Pancreas: Normal. No ductal dilation. Spleen: Splenic calcified granulomas. Adrenal glands: Normal. No mass. Kidneys and ureters: Right renal midpole medial mass measuring 3.4 x 3.9 cm. Additional bilateral renal simple cysts are seen. Stomach and bowel: Sigmoid colon diverticulosis. No small bowel loop dilatation. Appendix: Normal appendix. Intraperitoneal space: Unremarkable. No free air. No significant fluid collection. Vasculature: Mild calcified atherosclerotic changes are seen throughout the abdominal aorta. Lymph nodes: Unremarkable. No enlarged lymph nodes. Urinary bladder: Unremarkable as visualized. Reproductive: 6.2cm enlarged prostate. Bones/joints: Mild lumbar spine degenerative changes. Soft tissues: Unremarkable. CT/CT angio chest w abd pel wo/w IMPRESSION: 1. No pulmonary embolism. 2. Stable ectatic ascending thoracic aorta. 3. The esophagus is distended diffusely with air-fluid level. Clinical correlation to exclude achalasia or distal esophageal obstruction is advised. 4. There is a new right lower lobe 1.2 x 0.8 cm nodule (6/104). Metastases can not be excluded. PET-CT scan for further evaluation is advised 5. Mild calcified atherosclerotic changes are seen in the thoracic aorta. 6. Coronary calcifications. IMPRESSION: 1. There is a new indeterminate right hepatic lesion measuring 2.6 x 2.2 cm. MRI of the liver without and with IV contrast for further evaluation is advised. 2. Right renal midpole medial mass measuring 3.4 x 3.9 cm. Renal cell carcinoma can not be excluded. 3. Mild calcified atherosclerotic changes are seen throughout the abdominal aorta. 4. Enlarged prostate. 5. Mild lumbar spine degenerative changes.
[2024-12-26 08:13] LABS: Blood Urea Nitrogen 16 mg/dL (8-23)
[2024-12-26] MEDS: iohexol 350 mg/mL 500 mL Btl (per mL) IV (08:29)
== END 2024-12-26 07:41 | disposition home or self-care (01) ==
PROVIDERS: PCP Family Medicine; Visit Provider Family Medicine
DX: Z01.89 Encounter for other specified special examinations (principal); K76.9 Liver disease, unspecified; N28.89 Other specified disorders of kidney and ureter; I70.0 Atherosclerosis of aorta; N40.0 Benign prostatic hyperplasia without lower urinary tract symptoms; M47.896 Other spondylosis, lumbar region; D73.89 Other diseases of spleen; N28.1 Cyst of kidney, acquired; K57.30 Diverticulosis of large intestine without perforation or abscess without bleeding; I77.810 Thoracic aortic ectasia; K22.89 Other specified disease of esophagus; R93.5 Abnormal findings on diagnostic imaging of other abdominal regions, including retroperitoneum; I25.10 Atherosclerotic heart disease of native coronary artery without angina pectoris
CPT/HCPCS: 71275; 74178; 82565; 84520

== ENCOUNTER → 2025-01-21 11:01 | Outpatient (BNVA) | payer OTHER, SELFPAY | PROVIDERS: PCP Family Medicine; Visit Provider Internal Medicine Cardiovascular Disease | DX: J44.9 Chronic obstructive pulmonary disease, unspecified (principal); I10 Essential (primary) hypertension; E78.5 Hyperlipidemia, unspecified | CPT/HCPCS: 99214 ==

== ENCOUNTER 2025-02-12 08:54 | Outpatient (CLI) | payer OTHER, SELFPAY ==
[2025-02-12 09:14] VITALS: PULSE 64; RESP 18; O2SAT 96
[2025-02-12] MEDS: albuterol 2.5 mg/3 mL Neb INHALATION (09:14)
== END 2025-02-12 08:55 | disposition home or self-care (01) ==
PROVIDERS: PCP Family Medicine; Visit Provider Internal Medicine Cardiovascular Disease
DX: R06.02 Shortness of breath (principal); R94.2 Abnormal results of pulmonary function studies
CPT/HCPCS: 94060; 94726; 94729; J7613

== ENCOUNTER → 2025-04-08 09:17 | Outpatient (BNVA) | payer OTHER, SELFPAY | PROVIDERS: PCP Family Medicine; Visit Provider Internal Medicine | DX: R91.1 Solitary pulmonary nodule (principal); J44.9 Chronic obstructive pulmonary disease, unspecified; E66.9 Obesity, unspecified; Z87.891 Personal history of nicotine dependence; Z68.37 Body mass index [BMI] 37.0-37.9, adult | CPT/HCPCS: Q3014 ==

== ENCOUNTER 2025-04-25 13:19 | Outpatient (CLI) | payer OTHER, SELFPAY ==
--- NOTE | 2025-04-25 13:30 | CT_ITS ---
WS: [id number] CT CHEST TECHNIQUE: Noncontrast CT of the chest with coronal and sagittal reformatted images. CLINICAL INFORMATION: Pre procedure COMPARISON: None. DLP: All CT scans at [facility] use at least one of these dose optimization techniques: automated exposure control; mA and/or kV adjustment per patient size (includes targeted exams where dose is matched to clinical indication); or iterative reconstruction. FINDINGS: Again seen is the previously described slightly spiculated RIGHT lower lobe pulmonary nodule measuring 1.1 x 0.9 cm. This appears unchanged considering differences in technique. In addition there is an unchanged LEFT lower lobe subpleural pulmonary nodule measuring 8 mm. Stable small RIGHT perifissural nodule measuring 4 mm. Aortic calcification. Coronary calcification. Aneurysmal 3.9 cm ascending thoracic aorta. Normal caliber descending thoracic aorta. Adrenal glands are normal. Moderate esophageal hiatal hernia with air-fluid levels in the thoracic esophagus. Achalasia thoracic esophagus. No mediastinal or hilar lymphadenopathy. No axillary lymphadenopathy. CT/CT chest ION (PULM ONLY) [id number] IMPRESSION: 1. Again seen is the previously described slightly spiculated RIGHT lower lobe pulmonary nodule measuring 1.1 x 0.9 cm. This appears unchanged considering di fferences in technique. 2. In addition there is an unchanged LEFT lower lobe subpleural pulmonary nodu le measuring 8 mm. 3. Small RIGHT perifissural nodule measuring 4 mm. 4. Images obtained for intraoperative navigational purposes.
== END 2025-04-25 13:20 | disposition home or self-care (01) ==
LOC: RAD 13:21
PROVIDERS: PCP Family Medicine; Visit Provider Internal Medicine
DX: R91.8 Other nonspecific abnormal finding of lung field (principal); I70.0 Atherosclerosis of aorta; I25.10 Atherosclerotic heart disease of native coronary artery without angina pectoris; I71.21 Aneurysm of the ascending aorta, without rupture; K44.9 Diaphragmatic hernia without obstruction or gangrene; R93.89 Abnormal findings on diagnostic imaging of other specified body structures; K22.0 Achalasia of cardia
CPT/HCPCS: 71250

== ENCOUNTER 2025-05-02 13:05 | Outpatient (CLI) | payer OTHER, SELFPAY ==
--- NOTE | 2025-05-02 13:30 | PETR_ITS ---
PROCEDURE INFORMATION: Exam: PET/CT Skull Base to Mid-thigh Exam date and time: 05/02/2025 2:12 PM Age: 79 years old Clinical indication: Condition or disease; Condition/disease: Pulmonary nodule LABS AND CLINICAL REPORTS: Glucose: 126 mg/dl Treatment strategy for malignancy (PET staging): Initial Staging (PI) TECHNIQUE: Imaging protocol: Following at least four-hour fasting and following the injection of radiopharmaceutical, low dose CT images were obtained. Then, PET images were obtained. Attenuation corrected images were constructed using the CT scan. Fused images of PET and CT were reviewed. The standardized uptake values (SUV) reported below are maximum values within a region of interest, expressed in gm/ml. Exam includes orbital meatal line to mid-thigh. SUV normalization method: BodyWeight Radiopharmaceutical: 11.67 mCi F-18 FDG (Fluorodeoxyglucose), IV. Time of imaging post radiopharmaceutical administration: 48 minutes Injection site: lefrt ac COMPARISON: CT chest ION (PULM ONLY) 66538 04/25/2025, CTA chest, CT abdomen and pelvis 12/26/2024 FINDINGS: Brain: On the nondedicated limited brain images there is no abnormal distribution of the radiotracer in the nugent and white matter. Pharynx: Normal distribution of the radiotracer in nasopharyngeal, and oropharyngeal structures. Larynx: Normal distribution of the radiotracer in laryngeal structures. Lungs, pleura and trachea: No abnormal uptake. 1 cm right lower lobe nodule medially on axial image 122 is not FDG avid (1 SUV). Heart: Normal physiologic uptake. There is no cardiomegaly. Coronary artery calcification is present. There is no pericardial effusion. Mediastinal space: No abnormal uptake. Small hiatal hernia. Mild dilatation of the esophagus with fluid with air-fluid levels with no abnormal mass at the gastroesophageal junction. Liver: Normal size without abnormal radiotracer uptake. 2.8 cm hypodense focus in the segment 7 on series 202, image 120 corresponding to indeterminate lesion documented on CT abdomen pelvis on 12/26/2024 is not FDG avid Gallbladder and biliary ducts: No abnormal uptake. Pancreas: Normal distribution of radiotracer. Spleen: Normal size without abnormal radiotracer uptake. Punctate calcified granulomas. Adrenal glands: No abnormal uptake. No nodules. Kidneys and ureters: Normal physiologic uptake. No hydronephrosis. 3.3 cm simple cyst laterally in the midpole of the left kidney. About 4 cm mildly hyperdense nodule exophytic medially from the mid/lower pole of the right kidney represents known renal mass stable in size since 12/26/2024 shows lower uptake than normal renal parenchyma (about 2.7 SUV). Stomach and bowel: Segment of increased uptake in the small bowel and in the transverse colon with no corresponding CT abnormality are likely benign. Mild diverticulosis of the sigmoid colon. Intraperitoneal and retroperitoneal spaces: No abnormal uptake. No ascites. Urinary bladder: Normal physiologic uptake. Reproductive: No abnormal uptake. The prostate is enlarged. Vasculature: No abnormal uptake. No aortic aneurysm. Lymph nodes: No abnormal uptake. No lymphadenopathy in the head, neck, chest, abdomen, pelvis, and extremities. Sequela of exposure to granulomatous disease with calcified granulomas in the right mediastinal and right hilar lymph nodes. Skeleton: No abnormal uptake in the visualized axial and appendicular skeleton. Soft tissues: No abnormal uptake in the visualized head, neck, chest, abdomen, pelvis, and extremities. METRICS: Mediastinal blood pool maximal uptake is 3.1 SUV. Liver maximal uptake is 3.8 SUV. PET/PET skull to thigh INIT [id number] IMPRESSION: No abnormal uptake suggestive of malignancy No abnormal uptake within 1 cm lung nodule in the right lower lobe. No abnormal uptake within the liver including about 2.8 cm hypodense focus in the segment 7 of the liver described as indeterminate lesion on CT abdomen pelvis on 12/26/2024. About 4 cm mildly hyperdense nodule exophytic medially from the mid/lower pole of the right kidney stable in size since 12/26/2024 suspicious for renal mass shows lower uptake in comparison with normal renal parenchyma.
== END 2025-05-02 13:06 | disposition home or self-care (01) ==
LOC: RAD 13:05
PROVIDERS: PCP Family Medicine; Visit Provider Internal Medicine
DX: R91.1 Solitary pulmonary nodule (principal); I25.10 Atherosclerotic heart disease of native coronary artery without angina pectoris; K44.9 Diaphragmatic hernia without obstruction or gangrene; K22.89 Other specified disease of esophagus; R93.2 Abnormal findings on diagnostic imaging of liver and biliary tract; D73.89 Other diseases of spleen; N28.1 Cyst of kidney, acquired; N28.89 Other specified disorders of kidney and ureter; K57.30 Diverticulosis of large intestine without perforation or abscess without bleeding; N40.0 Benign prostatic hyperplasia without lower urinary tract symptoms; R59.0 Localized enlarged lymph nodes
CPT/HCPCS: 78815; A9552

== ENCOUNTER 2025-05-14 11:52 | Outpatient (CLI) | payer OTHER, SELFPAY ==
--- NOTE | 2025-05-14 12:00 | CT_ITS ---
WS: [id number] CT chest ION (PULM ONLY) 31011 HISTORY: Possible procedure TECHNIQUE: Axial imaging performed through the thorax. Coronal and sagittal reformats are submitted. All CT scans at [facility] use at least one of these dose optimization techniques: automated exposure control; mA and/or kV adjustment per patient size (includes targeted exams where dose is matched to clinical indication); or iterative reconstruction. CONTRAST: None DLP: 549.97 mGy COMPARISON: 04/25/2025, 12/26/2024 Lungs and central airway: Very small spiculated nodule at the RIGHT lung base is identified measuring 8 x 8 mm and appears slightly smaller in size as compared to 04/25/2025. No change subpleural 5 mm nodule LEFT lower lobe. 3 mm nodule adjacent to the RIGHT minor fissure is unchanged. Additional granuloma. Pleura: Normal. No pleural effusion. Heart and pericardium: Normal size heart with no pericardial effusion. Mediastinum and savanna: No mediastinum or hilar adenopathy. Vessels: Scattered atherosclerosis aorta. Mild ectasia. Normal size pulmonary artery. Chest wall and lower neck: No soft tissue masses. Upper abdomen: Moderate size hiatal hernia. No adrenal mass. CT/CT chest ION (PULM ONLY) [id number] IMPRESSION: 1. Spiculated nodule RIGHT lower lobe measures 8 x 8 mm with slight decrease i n size since the prior study. 2. No change in the LEFT lower lobe subpleural 8 mm nodule or the 4 mm RIGHT p erifissural nodule. 3. Imaging obtained for navigational purposes.
== END 2025-05-14 11:53 | disposition home or self-care (01) ==
LOC: RAD 11:52
PROVIDERS: PCP Family Medicine; Visit Provider Internal Medicine
DX: R91.8 Other nonspecific abnormal finding of lung field (principal)
CPT/HCPCS: 71250

== ENCOUNTER → 2025-06-23 09:55 | Outpatient (BNVA) | payer OTHER, SELFPAY | PROVIDERS: PCP Family Medicine; Visit Provider Internal Medicine | DX: R91.1 Solitary pulmonary nodule (principal); N28.89 Other specified disorders of kidney and ureter; Z87.891 Personal history of nicotine dependence | CPT/HCPCS: 99214; Q3014 ==

== ENCOUNTER → 2025-06-30 13:52 | Outpatient (BNVA) | payer OTHER, SELFPAY | PROVIDERS: PCP Family Medicine; Visit Provider Internal Medicine Cardiovascular Disease | DX: E78.5 Hyperlipidemia, unspecified (principal); I10 Essential (primary) hypertension; E11.9 Type 2 diabetes mellitus without complications; Z79.84 Long term (current) use of oral hypoglycemic drugs; J44.9 Chronic obstructive pulmonary disease, unspecified; I51.89 Other ill-defined heart diseases; I51.7 Cardiomegaly; Z87.891 Personal history of nicotine dependence | CPT/HCPCS: 99214 ==